=== PATIENT | female | born 1950 | race American Indian/Alaskan Native ===

== ENCOUNTER 2017-02-06 10:53 | Observation (INO) | payer MEDICARE ==
[2017-02-06 10:53] VITALS: BMI 28.8
--- NOTE | 2017-02-06 11:54 | C.PDOC ---
History Of Present Illness <Kathy Gonzales - Last Filed: 02/06/17 19:04> <InderSudhir - Last Filed: 02/06/17 21:11> 66 y/o female with Hx of Cancer is brought to ED by EMS with complaints of leg cramping right worse than left since this morning and persistent left axilla pain and side of left upper chest wall for "awhile". Patient also complaints of occasional cramping on right thigh and calf worse with movement. Patient was diagnosed with DVT in 2014 and has been on Coumadin since then, dose was increased 1 month ago. Patient denies cp, sob, chronic pain medicine use or any other complaints at this time. (Kathy Gonzales) History Per: Patient History/Exam Limitations: no limitations Onset/Duration Of Symptoms: Hrs Current Symptoms Are (Timing): Still Present <Kathy Gonzales - Last Filed: 02/06/17 19:04> <RandellalkaSudhir - Last Filed: 02/06/17 21:11> Time Seen by Provider: 02/06/17 11:28 Chief Complaint (Nursing): Lower Extremity Problem/Injury Past Medical History Reviewed: Historical Data, Nursing Documentation, Vital Signs - Medical History PMH: Anemia, Diabetes (Type 1), Malignancy (Colon, Breast) Family History: States: Unknown Family Hx - Social History Hx Tobacco Use: No Hx Alcohol Use: No Hx Substance Use: No - Immunization History Hx Tetanus Toxoid Vaccination: No Hx Influenza Vaccination: Yes Hx Pneumococcal Vaccination: No <Kathy Gonzales - Last Filed: 02/06/17 19:04> Review Of Systems Except As Marked, All Systems Reviewed And Found Negative. Constitutional: Negative for: Fever, Chills Cardiovascular: Negative for: Chest Pain Respiratory: Negative for: Shortness of Breath Gastrointestinal: Negative for: Nausea, Vomiting, Diarrhea Musculoskeletal: Positive for: Other (Axilla Pain) Neurological: Negative for: Weakness, Headache <Kathy Gonzales - Last Filed: 02/06/17 19:04> Physical Exam - Physical Exam Appears: Non-toxic, No Acute Distress Skin: Normal Color, Warm Head: Atraumatic, Normacephalic Oral Mucosa: Moist Neck: Normal ROM Chest: Symmetrical Cardiovascular: Rhythm Regular Respiratory: No Rales, No Rhonchi, No Wheezing Gastrointestinal/Abdominal: Soft, No Tenderness, No Guarding, No Rebound Extremity: Normal ROM (Upper Extremities), Pedal Edema, No Swelling, Other ( Patient has active muscle fasciculation on right thigh and calf, active pain noted) Extremity: Bilateral: Atraumatic, No Pedal Edema Neurological/Psych: Oriented x3, Normal Speech <Kathy Gonzales - Last Filed: 02/06/17 19:04> ED Course And Treatment - Laboratory Results Result Diagrams: 02/06/17 13:32 02/06/17 13:32 O2 Sat by Pulse Oximetry: 100 (RA) Pulse Ox Interpretation: Normal <Kathy Gonzales - Last Filed: 02/06/17 19:04> - Laboratory Results Result Diagrams: 02/06/17 13:32 02/06/17 20:42 Pulse Ox Interpretation: Normal Reevaluation Time: 21:10 Reassessment Condition: Improved <Sudhir Schulte - Last Filed: 02/06/17 21:11> Progress - Data Reviewed Data Reviewed: Lab, Diagnostic imaging, Old records <ChristianKathy - Last Filed: 02/06/17 19:04> Medical Decision Making <ChristianKathy - Last Filed: 02/06/17 19:04> <Sudhir Schulte - Last Filed: 02/06/17 21:11> Medical Decision Making: Plan: Meds, fluids and labs (Kathy Gonzales) ED OBSERVATION Date of observation admission: 02/06/17 Time of observation admission: 11:30 <Kathy Gonzales - Last Filed: 02/06/17 19:04> Discharge: Yes <RandellalkaNancyafua - Last Filed: 02/06/17 21:11> - Observation admission statement Patient is being placed in observation because:: MYALGIA, LEG PAIN (Kathy Gonzales) - Goals of Observation Goals of observation are:: RO DVT, ELECTROLYTE ABN, SX IMPROVE (Kathy Gonzales) - Progress Note Progress Note: 02/06/17 15:05 DOPPLER NO ACUTE FINDINGS. FEELS BETTER. MILD DEHYDRATION ON LABS, CREAT UNCH FROM PRIOR. WILL CONT IVF, REPEAT BMP 02/06/17 16:14 CO RECUR R LEG CRAMPING. WILL CONT MEDS, IVF IN PROGRESS 02/06/17 19:[address] SCHULTE (Kathy Gonzales) Disposition <Kathy Gonzales - Last Filed: 02/06/17 19:04> Counseled Patient/Family Regarding: Studies Performed, Diagnosis, Need For Followup - Disposition Disposition Time: 19:00 <Sudhir Schulte - Last Filed: 02/06/17 21:11> - Disposition Disposition: HOME/ ROUTINE Condition: FAIR - Clinical Impression Clinical Impression: Hyperkalemia, Muscle spasm of both lower legs - PA / [employer] / Resident Statement MD/DO has reviewed & agrees with the documentation as recorded. MD/DO has examined the patient and agrees with the treatment plan. - Scribe Statement The provider has reviewed the documentation as recorded by the Scribe <Kathy Gonzales - Last Filed: 02/06/17 19:04> <Sudhir Schulte - Last Filed: 02/06/17 21:11> - Scribe Statement Fabio Wyatt All medical record entries made by the Scribe were at my direction and personally dictated by me. I have reviewed the chart and agree that the record accurately reflects my personal performance of the history, physical exam, medical decision making, and the department course for this patient. I have also personally directed, reviewed, and agree with the discharge instructions and disposition. (Kathy Gonzales) Physician Patient Turnover Patient Signed Over To: Sudhir Schulte Handoff Comments: FU REPEAT BMP, DISPO <Kathy Gonzales - Last Filed: 02/06/17 19:04>
[2017-02-06 13:43] LABS: BASO % 0.4 % (0.0-2.0); EOS # 0.1 K/uL (0.0-0.7); EOS % 0.9 % (0.0-4.0); HEMATOCRIT 33.4 % (34.0-47.0); LYMPH # 0.9 K/uL (1.0-4.3); LYMPH % 14.5 % (20.0-40.0); MEAN CELL VOLUME 90.3 fL (81.0-99.0); MEAN CORPUSCULAR HEMOGLOBIN 29.8 pg (27.0-31.0); MEAN PLATELET VOLUME 8.3 fL (7.2-11.7); MONO # 0.9 K/uL (0.0-0.8); MONO % 14.7 % (0.0-10.0); RED CELL DISTRIBUTION WIDTH 13.1 % (11.5-14.5); WHITE BLOOD COUNT 5.9 K/uL (4.8-10.8)
[2017-02-06 13:51] LABS: INR 2.8
[2017-02-06 13:58] LABS: CALCIUM 9.1 mg/dl (8.6-10.4)
[2017-02-06 14:13] LABS: POTASSIUM 5.9 mmol/L (3.6-5.2)
[2017-02-06] MEDS ORDERED: (Novolin R) Insulin Human Regular 100 units/ml vial IV STA (15:15)
[2017-02-06] MEDS ORDERED: Dextrose 50% SYRINGE Inj (50 ml) IVP STA (15:15)
[2017-02-06] MEDS ORDERED: Sodium Chloride 0.9% 1,000 ML IV ONE ×2 (15:15→16:29)
--- NOTE | 2017-02-06 15:22 | VASCLAB ---
PROCEDURE: Lower Extremity Venous Duplex Exam. HISTORY: PAIN HO CANCER RO DVT PRIORS: None. TECHNIQUE: Bilateral common femoral, femoral, popliteal and posterior tibial, peroneal and great saphenous veins were evaluated. Flow was assessed with color Doppler, compressibility, assessment of phasic flow and augmentation response. Report prepared by Sudheer Perez, SHELIA, RVT FINDINGS: RIGHT: 1. Common Femoral Vein: 1.1. Compressibility - Fully compressible: Thrombus - None : Flow - Phasic: Augmentation -Normal: Reflux - None. 2. Femoral Vein: 2.1. Compressibility - Fully compressible: Thrombus - None : Flow - Phasic: Augmentation -Normal: Reflux - None. 3. Popliteal Vein: 3.1. Compressibility - Fully compressible: Thrombus - None : Flow - Phasic: Augmentation -Normal: Reflux - None. 4. Posterior Tibial Vein: 4.1. Compressibility - Fully compressible: Thrombus - None: Flow - Phasic: Augmentation -Normal: Reflux - None. 5. Peroneal Vein: 5.1. Compressibility - Fully compressible: Thrombus - None: Flow - Phasic: Augmentation -Normal: Reflux - None. 6. Great Saphenous Vein: 6.1. Compressibility - Fully compressible: Thrombus - None: Flow - Phasic: Augmentation - Normal: Reflux - None. LEFT: 1. Common Femoral Vein: 1.1. Compressibility - Fully compressible: Thrombus - None: Flow - Phasic: Augmentation -Normal: Reflux - None. 2. Femoral Vein: 2.1. Compressibility - Fully compressible: Thrombus - None: Flow - Phasic: Augmentation -Normal: Reflux - None. 3. Popliteal Vein: 3.1. Compressibility - Fully compressible: Thrombus - None : Flow - Phasic: Augmentation -Normal: Reflux - None. 4. Posterior Tibial Vein: 4.1. Compressibility - Fully compressible: Thrombus - None: Flow - Phasic: Augmentation -Normal: Reflux - None. 5. Peroneal Vein: 5.1. Compressibility - Fully compressible: Thrombus - None: Flow - Phasic: Augmentation -Normal: Reflux - None. 6. Great Saphenous Vein: 6.1. Compressibility - Fully compressible: Thrombus - None: Flow - Phasic: Augmentation - Normal: Reflux - None. OTHER FINDINGS: Right: None significant. Left: None significant. IMPRESSION: Right: No evidence of deep or superficial vein thrombosis of the right lower extremity. Normal valve function noted of the right side. Left: No evidence of deep or superficial vein thrombosis of the left lower extremity. Normal valve function noted of the left side.
--- NOTE | 2017-02-06 15:22 | VASCLAB ---
PROCEDURE: Left Upper Extremity Venous Duplex Exam HISTORY: PAIN HO CANCER RO DVT PRIORS: None. TECHNIQUE: Left upper extremity, internal jugular, subclavian, axillary, brachial, ulnar, radial, basilic and upper cephalic veins were evaluated. Flow was assessed with color Doppler, compressibility, assessment of phasic flow and augmentation response. Report prepared by Sudheer Perez, SHELIA, RVT FINDINGS: LEFT: 1. Internal Jugular: 1.1. Compressibility - Fully compressible: Thrombus - None : Flow - Phasic: Augmentation -Normal: Reflux - None. 2. Subclavian: 2.1. Compressibility - Incompressible: Thrombus - Chronic : Flow - Absent : Augmentation -None: Reflux - None. 3. Axillary: 3.1. Compressibility - Fully compressible: Thrombus - None : Flow - Phasic: Augmentation -Normal: Reflux - None. 4. Brachial: 4.1. Compressibility - Fully compressible: Thrombus - None: Flow - Phasic: Augmentation -Normal: Reflux - None. 5. Ulnar: 5.1. Compressibility - Fully compressible: Thrombus - None: Flow - Phasic: Augmentation -Normal: Reflux - None. 6. Radial: 6.1. Compressibility - Fully compressible: Thrombus - None: Flow - Phasic: Augmentation - Normal: Reflux - None. 7. Cephalic: 7.1. Compressibility - Fully compressible: Thrombus - None: Flow - Phasic: Augmentation -Normal: Reflux - None. 8. Basilic: 8.1. Compressibility - Fully compressible: Thrombus - None: Flow - Phasic: Augmentation -Normal: Reflux - None. OTHER FINDINGS: Dr. Gonzales notified about the findings. 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 Normal venous flow noted in the right internal jugular and right subclavian veins.
[2017-02-06] MEDS ORDERED: (Novolin R) Insulin Human Regular 100 units/ml vial ONE (15:25)
[2017-02-06] MEDS ORDERED: Dextrose 50% SYRINGE Inj (50 ml) ONE (15:26)
[2017-02-06] MEDS ORDERED: Sodium Chloride 0.9% 1,000 ML ONE ×2 (15:26→17:30)
[2017-02-06] MEDS ORDERED: Oxycodone/Acetaminophen 5/325 mg Tab PO STA (16:14)
[2017-02-06] MEDS ORDERED: Oxycodone/Acetaminophen 5/325 mg Tab ONE (16:24)
[2017-02-06 16:25] VITALS: TEMP 98.7
[2017-02-06 20:39] VITALS: BP 112/52; PULSE 82; RESP 20; O2SAT 99
[2017-02-06 20:58] LABS: POTASSIUM 5.4 mmol/L (3.6-5.2)
[2017-02-06 21:02] LABS: CALCIUM 8.2 mg/dl (8.6-10.4)
[2017-02-06] MEDS ORDERED: Sod Polystyrene Sulf 15 gm/60 ml Oral Susp PO ONE (21:13)
[2017-02-06] MEDS ORDERED: Sod Polystyrene Sulf 15 gm/60 ml Oral Susp ONE (21:26)
== END 2017-02-06 21:11 | disposition home or self-care (01) ==
LOC: C.ER 10:53 → C.9OBSV 11:30
PROVIDERS: ADMIT Emergency Medicine; ATTEND Emergency Medicine
DX: R25.2 Cramp and spasm (principal); M62.831 Muscle spasm of calf; E87.5 Hyperkalemia; M79.1 Myalgia
CPT/HCPCS: 36415; 80048; 85025; 85610; 85730; 93970; 93971; 96360; 96374; G0378; J1885; J2270; J7040

== ENCOUNTER 2017-05-19 07:04 | Day surgery (SDC) | payer MEDICARE ==
[2017-05-14 12:57] VITALS: BMI 27.1
[2017-05-19] MEDS: ceFAZolin IV 1 gm in Dextrose 1 GM/50 ML BAG IVPB ONE ×2 (09:14→10:10)
[2017-05-19] MEDS ORDERED: Lactated Ringer's 1,000 ML IV ONE ×3 (09:14)
[2017-05-19] MEDS: Lidocaine 2% w Epi 1:100,000 Inj IJ ONE ×2 (09:15→10:14)
[2017-05-19] MEDS ORDERED: Bupivacaine 0.5% Inj(30mL) ONE (09:33)
[2017-05-19] MEDS ORDERED: Midazolam 2 MG/2 ML VIAL ONE (10:01)
[2017-05-19] MEDS ORDERED: Propofol 10 mg/ml Inj (20 ML) ONE ×2 (10:01→10:04)
[2017-05-19] MEDS ORDERED: Rocuronium 10 mg/ml (5 ml) ONE (10:04)
--- NOTE | 2017-05-19 10:58 | PCM.SURG1 ---
Surgeon's Initial Post Op Note - Surgeon's Notes Surgeon: Dr. Zuluaga Credit Control Administrator: Rico [id number] III Type of Anesthesia: IV Sedation Pre-Operative Diagnosis: Firm clavicular Lymph node Operative Findings: see operative report Post-Operative Diagnosis: same Operation Performed: Excisional biopsy of clavicular Lymph node Specimen/Specimens Removed: clavicular Lymph node Estimated Blood Loss: EBL {In ML}: 5 Blood Products Given: N/A Drains Used: No Drains Post-Op Condition: Good Date of Surgery/Procedure: 05/19/17 Time of Surgery/Procedure: 10:58
[2017-05-19 11:29] VITALS: O2SAT 100
[2017-05-19 11:54] VITALS: BP 123/61; PULSE 100; RESP 18; TEMP 97
--- NOTE | 2017-05-19 19:07 | OP ---
PROCEDURE DATE: 05/19/2017 PREOPERATIVE DIAGNOSIS: Abnormal left supraclavicular subcutaneous nodule. PROCEDURE CARRIED OUT: Excision of 3 cm lesion, left supraclavicular region. SURGEON: Prince Zuluaga Jr., MD STEWARD/STEWARDESS NIGHT: . TYPE OF ANESTHESIA: General anesthesia, local. ANESTHESIA ADMINISTERED BY: Ms. Marshall. OPERATIVE FINDINGS: One lesion was completely removed until it is hard to say, whether this is a cyst or represented a malignant lesion. INDICATIONS: The patient is a middle-aged female with history of colorectal cancer and breast cancer, status post radiation therapy to left side of the neck presents with a large lesion in this area. She also has a multiple pulmonary nodules. DESCRIPTION OF PROCEDURE: Lesion was excised. The wound was then approximated in a layered closure. The flaps were raised, which was necessary because of the irradiated tissue, but after this has been done it approximated nicely. Blood loss for the procedure is minimal. Operation carried out is excision of left supraclavicular nodule of 3 cm in size. Prince Zuluaga Jr., MD
== END 2017-05-19 12:32 | disposition home or self-care (01) ==
LOC: C.SDS 07:04
PROVIDERS: ATTEND Surgery Vascular Surgery
DX: C79.2 Secondary malignant neoplasm of skin (principal); Z85.3 Personal history of malignant neoplasm of breast; Z92.3 Personal history of irradiation; Z85.038 Personal history of other malignant neoplasm of large intestine
CPT/HCPCS: 38520; 82948; 84233; 88305; 88342; J0690; J2001; J2250; J2704; J3010; J7120

== ENCOUNTER 2017-06-17 05:44 | Emergency (ER) | payer MEDICARE ==
[2017-06-17 05:46] VITALS: BMI 27.1
--- NOTE | 2017-06-17 06:10 | C.PDOC ---
History Of Present Illness Patient presents to the ER with a complaint of left arm pain and left leg cramps radiating to the right arm. Patient was recently diagnosed with metastatic breast CA. Denies fever, chills, nausea, vomiting, or recent trauma. Time Seen by Provider: 06/17/17 06:10 Chief Complaint (Nursing): Upper Extremity Problem/Injury History Per: Patient History/Exam Limitations: no limitations Onset/Duration Of Symptoms: Hrs Current Symptoms Are (Timing): Still Present Quality: "Pain" Severity: Moderate Pain Scale Rating Of: 5 Exacerbating Factor(s): Movement Recent travel outside of the [place]: No Additional History Per: Patient Past Medical History Reviewed: Historical Data, Nursing Documentation, Vital Signs Vital Signs: Last Vital Signs Temp 97.5 F L 06/17/17 05:56 Pulse 72 06/17/17 05:56 Resp 20 06/17/17 05:56 BP 162/91 H 06/17/17 05:56 Pulse Ox 100 06/17/17 06:39 - Medical History PMH: Anemia, Diabetes (Type 1), Malignancy (Colon, Breast) - [facility] Procedures ENDO RECTUM POLYPECTOMY (05/24/02) ENDOSC POLYPECTOMY OF LG INTEST (06/15/04) ESOPHAGOGASTRODUODENOSCOPY [EGD] W/CLOSED BIOPSY (07/17/04) Family History: States: No Known Family Hx - Social History Hx Tobacco Use: No Hx Alcohol Use: No Hx Substance Use: No - Immunization History Hx Tetanus Toxoid Vaccination: No Hx Influenza Vaccination: Yes Hx Pneumococcal Vaccination: No Review Of Systems Constitutional: Negative for: Fever, Chills Eyes: Negative for: Vision Change ENT: Negative for: Throat Pain Cardiovascular: Negative for: Chest Pain Respiratory: Negative for: Shortness of Breath Gastrointestinal: Negative for: Nausea, Vomiting Musculoskeletal: Positive for: Shoulder Pain, Arm Pain, Leg Pain Skin: Negative for: Rash Neurological: Negative for: Weakness Psych: Negative for: Anxiety Physical Exam - Physical Exam Appears: Non-toxic Skin: Warm, Dry Head: Normacephalic Eye(s): bilateral: Normal Inspection, PERRL, EOMI Oral Mucosa: Moist Neck: Trachea Midline, Supple Chest: Symmetrical, Tenderness (left chest wall, reproducible) Cardiovascular: Rhythm Regular Respiratory: No Rales, No Rhonchi, No Wheezing Gastrointestinal/Abdominal: Soft, No Tenderness Back: Normal Inspection Extremity: Tenderness (Reproducible left shoulder and left arm), Swelling (Left arm edema, left arm bigger than right arm), Other (Limited ROM of left arm due to pain) Extremity: Bilateral: Atraumatic, Normal Color And Temperature, Normal ROM Pulses: Left Radial: Normal, Right Radial: Normal, Left Femoral: Normal, Right Femoral: Normal, Left Dorsalis Pedis: Normal, Right Dorsalis Pedis: Normal Neurological/Psych: Oriented x3, Normal Speech, Normal Cognition Gait: Steady ED Course And Treatment - Laboratory Results Result Diagrams: 06/17/17 06:28 O2 Sat by Pulse Oximetry: 100 (Room air) Pulse Ox Interpretation: Normal Progress Note: EKG, blood work, CXR, and urinalysis ordered. Toradol and IV fluids administered. Disposition Counseled Patient/Family Regarding: Studies Performed, Diagnosis - Disposition Disposition Time: 06:10 Condition: UNKNOWN Forms: [facility] (Polish) - Clinical Impression Clinical Impression: Chest pain, Arm swelling, History of colon cancer, History of breast cancer - Scribe Statement The provider has reviewed the documentation as recorded by the Scribcinthya Barbosa All medical record entries made by the Scribe were at my direction and personally dictated by me. I have reviewed the chart and agree that the record accurately reflects my personal performance of the history, physical exam, medical decision making, and the department course for this patient. I have also personally directed, reviewed, and agree with the discharge instructions and disposition. Physician Patient Turnover Patient Signed Over To: Kathy Gonzales Handoff Comments: pending labs and dispostion
[2017-06-17] MEDS ORDERED: Sodium Chloride 0.9% 1,000 ML IV SCH (06:15)
[2017-06-17 06:32] LABS: BASO % 0.3 % (0.0-2.0); EOS # 0.1 K/uL (0.0-0.7); EOS % 1.2 % (0.0-4.0); HEMATOCRIT 34.4 % (34.0-47.0); LYMPH # 1.5 K/uL (1.0-4.3); LYMPH % 22.4 % (20.0-40.0); MEAN CELL VOLUME 93.1 fL (81.0-99.0); MEAN CORPUSCULAR HEMOGLOBIN 30.7 pg (27.0-31.0); MEAN PLATELET VOLUME 8.8 fL (7.2-11.7); MONO # 0.7 K/uL (0.0-0.8); MONO % 9.9 % (0.0-10.0); NRBC % 0.1 % (0.0-2.0); WHITE BLOOD COUNT 6.9 K/uL (4.8-10.8)
[2017-06-17 06:43] LABS: CHLORIDE 104 mmol/L (98-107); POTASSIUM 4.8 mmol/L (3.6-5.2); SODIUM 133 mmol/L (132-148)
[2017-06-17 06:45] LABS: AST/SGOT 35 U/L (14-36); BILIRUBIN,TOTAL 0.5 mg/dL (0.2-1.3); BLOOD UREA NITROGEN 37 mg/dL (7-17); CARBON DIOXIDE 17 mmol/L (22-30); GFR AFRICAN-AMERICAN 39; TOTAL PROTEIN 9.1 g/dL (6.3-8.3)
[2017-06-17 06:46] LABS: ALKALINE PHOSPHATASE 79 U/L (38-126); ALT/SGPT 32 U/L (9-52); CALCIUM 10.2 mg/dl (8.6-10.4); GLUCOSE,RANDOM 117 mg/dL (65-105)
[2017-06-17 07:05] LABS: INR 2.8; PARTIAL THROMBOPLASTIN TIME 41 SECONDS (21-34)
--- NOTE | 2017-06-17 08:07 | RAD ---
PROCEDURE: CHEST RADIOGRAPH, 1 VIEW HISTORY: SOB COMPARISON: 12/07/2014 chest x-ray. CT chest abdomen and pelvis 05/01/2017 FINDINGS: LUNGS: No significant appearing consolidation. Vague opacity at the left hemidiaphragm probably relates to CT referenced spiculated nodule at the left lung base PLEURA: No pneumothorax or pleural fluid seen. CARDIOVASCULAR: Normal heart size. Pulmonary vasculature -top-normal OSSEOUS STRUCTURES: No significant abnormalities. VISUALIZED UPPER ABDOMEN: Normal. OTHER FINDINGS: None. IMPRESSION: No acute cardiopulmonary pathology appreciated. Please note the previously reported CT pulmonary nodules - -for which this chest x-ray is fairly unrevealing of.
[2017-06-17 09:30] LABS: RBC URINE 1 /hpf (0-3); URINE BACTERIA RARE (<OCC); URINE BILIRUBIN NEGATIVE (NEGATIVE); URINE BLOOD NEGATIVE (NEGATIVE); URINE COLOR Yellow (YELLOW); URINE GLUCOSE (UA) NORMAL (Normal); URINE KETONE NEGATIVE (NEGATIVE); URINE LEUKOCYTE ESTERASE 3+ Leu/uL (Negative); URINE PROTEIN NEGATIVE (NEGATIVE); URINE UROBILINOGEN NORMAL mg/dL (0.2-1.0); WBC URINE 44 /hpf (0-5)
[2017-06-17 11:21] VITALS: BP 137/68; PULSE 87; RESP 17; TEMP 97.9; O2SAT 100
== END 2017-06-17 13:07 | disposition home or self-care (01) ==
LOC: C.ER 05:44
DX: R07.9 Chest pain, unspecified (principal); M79.89 Other specified soft tissue disorders; Z85.038 Personal history of other malignant neoplasm of large intestine; Z85.3 Personal history of malignant neoplasm of breast; D64.9 Anemia, unspecified; E11.9 Type 2 diabetes mellitus without complications
CPT/HCPCS: 71010; 80053; 81001; 82948; 84484; 85025; 85378; 85610; 85730; 94770; 96374; 99285; J1885; J7040

== ENCOUNTER 2017-11-01 11:35 | Inpatient (IN) | payer MEDICARE ==
[2017-11-01 11:42] VITALS: BMI 25.8
[2017-11-01 12:09] LABS: BASO % 0.5 % (0.0-2.0); EOS # 0.1 K/uL (0.0-0.7); HEMOGLOBIN 10.8 g/dL (11.0-16.0); LYMPH # 1.2 K/uL (1.0-4.3); LYMPH % 21.2 % (20.0-40.0); MEAN CELL VOLUME 93.1 fL (81.0-99.0); MEAN CORPUSCULAR HEMOGLOBIN 30.9 pg (27.0-31.0); MEAN CORPUSCULAR HGB CONC 33.2 g/dL (33.0-37.0); MEAN PLATELET VOLUME 8.9 fL (7.2-11.7); MONO # 0.5 K/uL (0.0-0.8); MONO % 9.3 % (0.0-10.0); NEUT # 3.8 K/uL (1.8-7.0); RBC 3.49 Mil/uL (3.80-5.20); RED CELL DISTRIBUTION WIDTH 12.5 % (11.5-14.5); WHITE BLOOD COUNT 5.6 K/uL (4.8-10.8)
--- NOTE | 2017-11-01 12:10 | C.PDOC ---
History Of Present Illness 67 year old female presents to the emergency department with a complaint of a chest pain and shortness of breath x2 days. Reports pain is located to the left sided and radiates to the back. States she had pain yesterday but persisted today which is why she decided to come to the ER. Denies use of medications for the relief of pain or any further medical complaints. Patient has a history of deep vein thrombosis (DVT), colostomy, and diabetes. Time Seen by Provider: 11/01/17 11:49 Chief Complaint (Nursing): Chest Pain History Per: Patient History/Exam Limitations: no limitations Onset/Duration Of Symptoms: Days Past Medical History Reviewed: Historical Data, Nursing Documentation, Vital Signs Vital Signs: Last Vital Signs Temp 98.2 F 11/01/17 18:00 Pulse 84 11/01/17 18:00 Resp 14 11/01/17 18:00 BP 132/70 11/01/17 18:00 Pulse Ox 100 11/01/17 18:29 - Medical History PMH: Anemia, Diabetes (Type 1), Malignancy (Colon, Breast) Denies: Chronic Kidney Disease - [facility] Procedures ENDO RECTUM POLYPECTOMY (05/24/02) ENDOSC POLYPECTOMY OF LG INTEST (06/15/04) ESOPHAGOGASTRODUODENOSCOPY [EGD] W/CLOSED BIOPSY (07/17/04) Family History: States: Unknown Family Hx - Social History Hx Tobacco Use: No Hx Alcohol Use: No Hx Substance Use: No - Immunization History Hx Tetanus Toxoid Vaccination: No Hx Influenza Vaccination: Yes Hx Pneumococcal Vaccination: No Review Of Systems Except As Marked, All Systems Reviewed And Found Negative. (As per HPI, otherwise negative) Cardiovascular: Positive for: Chest Pain (Left-sided) Respiratory: Positive for: Shortness of Breath Musculoskeletal: Positive for: Back Pain Physical Exam - Physical Exam Appears: Well, Non-toxic, Toxic Skin: Normal Color, Warm, Dry Head: Atraumatic, Normacephalic Eye(s): bilateral: Normal Inspection Neck: Normal Chest: Symmetrical Cardiovascular: Rhythm Regular Respiratory: Normal Breath Sounds, No Decreased Breath Sounds, No Accessory Muscle Use Gastrointestinal/Abdominal: Normal Exam, Soft, No Tenderness, Other (positive colostomy bag) Back: Normal Inspection Extremity: Normal ROM, No Pedal Edema Extremity: Bilateral: Atraumatic Neurological/Psych: Oriented x3 Gait: Steady ED Course And Treatment - Laboratory Results Result Diagrams: 11/01/17 12:03 11/01/17 12:03 ECG Rhythm: Sinus Rhythm (Normal sinus at 89 bpm. Normal intervals. Normal axis. Poor R wave progression and T wave inversion at lead 3. ) O2 Sat by Pulse Oximetry: 100 (RA) Pulse Ox Interpretation: Normal Medical Decision Making Medical Decision Making: Time:1200 --EKG --BNP --CMP --Troponin I --CBC w/ diff --Chest x-ray --Reevaluation Time: 1231 --Chest x-ray FINDINGS: LUNGS: 5 mm right apical lung nodule. Clear. PLEURA: No pneumothorax or pleural fluid seen. CARDIOVASCULAR: Atherosclerotic aortic calcifications. Cardiomediastinal silhouette within normal limits. OSSEOUS STRUCTURES: Unchanged. VISUALIZED UPPER ABDOMEN: Normal. OTHER FINDINGS: None. IMPRESSION: No active disease. Right apical 5 mm pulmonary nodule. Multiple additional pulmonary nodules demonstrated on CT scan of the chest, abdomen pelvis from April 2017. case discussed with admitting team and will admit patient to hospital Disposition Counseled Patient/Family Regarding: Studies Performed, Diagnosis, Need For Followup - Disposition Disposition: HOSPITALIZED Disposition Time: 13:58 Condition: FAIR - Clinical Impression Clinical Impression: Chest pain, Pancreatitis
--- NOTE | 2017-11-01 12:32 | RAD ---
PROCEDURE: CHEST RADIOGRAPH, 1 VIEW HISTORY: chest pain COMPARISON: Chest radiograph dated 06/17/2017. FINDINGS: LUNGS: 5 mm right apical lung nodule. Clear. PLEURA: No pneumothorax or pleural fluid seen. CARDIOVASCULAR: Atherosclerotic aortic calcifications. Cardiomediastinal silhouette within normal limits. OSSEOUS STRUCTURES: Unchanged. VISUALIZED UPPER ABDOMEN: Normal. OTHER FINDINGS: None. IMPRESSION: No active disease. Right apical 5 mm pulmonary nodule. Multiple additional pulmonary nodules demonstrated on CT scan of the chest, abdomen pelvis from April 2017.
[2017-11-01 12:33] LABS: ALB/GLOB RATIO 1.1 (1.0-2.1); ALBUMIN 4.3 g/dL (3.5-5.0); ALT/SGPT 13 U/L (9-52); AST/SGOT 32 U/L (14-36); BLOOD UREA NITROGEN 31 mg/dL (7-17); GFR AFRICAN-AMERICAN 45; GFR NON-AFRICAN AMERICAN 37
[2017-11-01 12:34] LABS: B-TYPE NATRIURETIC PEPTIDE 44.8 pg/mL (0-900)
[2017-11-01 12:55] LABS: INR 2.2; PROTHROMBIN TIME 25.4 SECONDS (9.7-12.2)
--- NOTE | 2017-11-01 17:13 | CP.PCM.HP ---
<Natanael Kendall - Last Filed: 11/01/17 17:07> History of Present Illness - History of Present Illness History of Present Illness: This is a 67 yo female with past medical hx of colon cancer, breast cancer, sciatica, clot in subclavian, ckd, presenting with chief complaint of chest pain. pt has been having chest pain for 1-2 days. she reports this has never happened before. she says she saw a manager banquet a long time ago but cannot recall why. she reports having a normal stress test. she says the pain is located over her sternum and radiates to her back. relaxing makes it better, bending over makes it worse. the pain itself has been getting worse, now 01/08. describes the sensation as "pressure." denies abdominal pain. on warfarin for subclavian dvt. PMH: subclavian dvt, ckd, sciatica, with lumbago, colon cancer, breast cancer, DM, fibroids PSH: hysterectomy, lumpectomy, colostomy Allergies: tylenol, oxycodone FH: PE , MA Home meds: glipizide, anastrozole, warfarin, shanti + d, biotin, sodium bicarb, atorvastatin Social hx: past smoker. does not drink or use drugs. Present on Admission - Present on Admission Any Indicators Present on Admission: Yes History of DVT/PE: Yes History of Uncontrolled Diabetes: No Urinary Catheter: No Decubitus Ulcer Present: No Review of Systems - Review of Systems All systems: reviewed and no additional remarkable complaints except Review of Systems: negative except as per HPI. Past Patient History - Infectious Disease Hx of Infectious Diseases: None - Tetanus Immunizations Tetanus Immunization: Unknown - Past Medical History & Family History Past Medical History?: Yes - Past Social History Smoking Status: Former Smoker Chewing Tobacco Use: No Cigar Use: No Alcohol: None Drugs: Denies Home Situation {Lives}: With Family Domestic Violence: Negative - CARDIAC Hx Cardiac Disorders: Yes Hx Circulatory Problems: Yes (blood clots) Other/Comment: CLOTS LEFT SUB CLAVIAN 2014 - HEENT Other/Comment: Near sighted - RENAL Hx Chronic Kidney Disease: No - ENDOCRINE/METABOLIC Hx Endocrine Disorders: Yes Hx Diabetes Mellitus Type 1: Yes - HEMATOLOGICAL/ONCOLOGICAL Hx Anemia: Yes - INTEGUMENTARY Hx Dermatological Problems: No - MUSCULOSKELETAL/RHEUMATOLOGICAL Hx Musculoskeletal Disorders: Yes Hx Back Pain: Yes Hx Falls: Yes Other/Comment: Left arm weakness, right foot weakness - GASTROINTESTINAL Hx Gastrointestinal Disorders: Yes Hx Bowel Surgery: Yes Hx Colostomy: Yes (2012) Other/Comment: COLON CANCER - GENITOURINARY/GYNECOLOGICAL Hx Genitourinary Disorders: No Hx Urinary Tract Infection: Yes Other/Comment: COLON CANCER - PSYCHIATRIC Hx Substance Use: No - SURGICAL HISTORY Hx Surgeries: Yes Hx Breast Biopsy: Yes (LEFT BREAST LUMPECTOMY) Hx Hysterectomy: Yes (1988) Other/Comment: TOTAL COLECTOMY 1984 - ANESTHESIA Hx Anesthesia: Yes Hx Anesthesia Reactions: Yes (1984, patient does not remember the medication) Hx Malignant Hyperthermia: No Meds Allergies/Adverse Reactions: Allergies Allergy/AdvReac Type Severity Reaction Status Date / Time acetaminophen [From Percocet] Allergy VOMITING Verified 11/01/17 11:39 oxycodone [From Percocet] Allergy VOMITING Verified 11/01/17 11:39 Physical Exam - Constitutional Appears: Non-toxic, No Acute Distress, Chronically Ill - Head Exam Head Exam: ATRAUMATIC, NORMAL INSPECTION, NORMOCEPHALIC - Eye Exam Eye Exam: EOMI - ENT Exam ENT Exam: Mucous Membranes Moist - Neck Exam Neck exam: Positive for: Full Rom, Normal Inspection - Respiratory Exam Respiratory Exam: Chest Wall Tenderness, NORMAL BREATHING PATTERN. absent: Respiratory Distress - Cardiovascular Exam Cardiovascular Exam: +S1, +S2 - GI/Abdominal Exam GI & Abdominal Exam: Normal Bowel Sounds, Soft. absent: Tenderness - Extremities Exam Extremities exam: Positive for: full ROM, normal inspection - Back Exam Back exam: NORMAL INSPECTION - Psychiatric Exam Psychiatric exam: Normal Affect, Normal Mood - Skin Skin Exam: Dry, Intact, Normal Color, Warm Results - Vital Signs Recent Vital Signs: Last Vital Signs Temp 97.9 F 11/01/17 11:42 Pulse 96 H 11/01/17 16:44 Resp 13 11/01/17 16:44 BP 138/76 11/01/17 16:44 Pulse Ox 100 11/01/17 16:44 - Labs Result Diagrams: 11/01/17 12:03 11/01/17 12:03 Labs: Laboratory Results - last 24 hr 11/01/17 11/01/17 11/01/17 12:03 12:03 12:40 WBC 5.6 RBC 3.49 L Hgb 10.8 L Hct 32.5 L MCV 93.1 MCH 30.9 MCHC 33.2 RDW 12.5 Plt Count 252 MPV 8.9 Neut % (Auto) 68.0 Lymph % (Auto) 21.2 [place] % (Auto) 9.3 Eos % (Auto) 1.0 Baso % (Auto) 0.5 Neut # (Auto) 3.8 Lymph # (Auto) 1.2 [place] # (Auto) 0.5 Eos # (Auto) 0.1 Baso # (Auto) 0.0 PT 25.4 H INR 2.2 APTT 42 H D-Dimer, Quantitative Sodium 139 Potassium 5.0 Chloride 103 Carbon Dioxide 24 Anion Gap 17 BUN 31 H Creatinine 1.4 H Est GFR ( Amer) 45 Est GFR (Non-Af Amer) 37 Random Glucose 196 H Calcium 10.0 Total Bilirubin 0.4 AST 32 ALT 13 Alkaline Phosphatase 83 Troponin I < 0.0120 NT-Pro-B Natriuret Pep 44.8 Total Protein 8.3 Albumin 4.3 Globulin 4.0 H Albumin/Globulin Ratio 1.1 Lipase 11/01/17 11/01/17 12:40 14:13 WBC RBC Hgb Hct MCV MCH MCHC RDW Plt Count MPV Neut % (Auto) Lymph % (Auto) [place] % (Auto) Eos % (Auto) Baso % (Auto) Neut # (Auto) Lymph # (Auto) [place] # (Auto) Eos # (Auto) Baso # (Auto) PT INR APTT D-Dimer, Quantitative < 200 Sodium Potassium Chloride Carbon Dioxide Anion Gap BUN Creatinine Est GFR ( Amer) Est GFR (Non-Af Amer) Random Glucose Calcium Total Bilirubin AST ALT Alkaline Phosphatase Troponin I NT-Pro-B Natriuret Pep Total Protein Albumin Globulin Albumin/Globulin Ratio Lipase 401 H Assessment & Plan - Assessment and Plan (Free Text) Assessment: This is a 67 yo female with 1. Chest pain -risk factors- DM, HTN, former smoker. -check trops and serial ekgs -d dimer neg -echo pending -cardiology. Dr. Cazares. recs appreciated. -EKG shows t wave inversion- will check for prior ekgs -will follow up report of prior stress test. -ASO -rapid flu -cxr -bnp pending -HGB A1C, TSH -ESR, CRP -will check manual blood pressure in each upper ext. 2. hx of subclavian dvt/hx of breast cancer/hx of colon cancer -s/p post total colectomy -d dimer negative -therapeutic on warfarin -continue warfarin -upper and lower extremity venous dopplers pending 3. elevated lipase -repeat lipase and amylase -lipid panel in am -can be due to ckd 4. urinary frequency -check ua -urine culture 5. CKD -nephrology consult. recs appreciated. Dr. Freeman. 6. lumbar pathology -previous mri will be reviewed 7. DM -continue home glipizide 8. GI/DVT ppx -continue warfarin -protonix daily dw Dr. Dasilva. <Uzma Dasilva V - Last Filed: 11/01/17 21:35> Results - Vital Signs Recent Vital Signs: Last Vital Signs Temp 97.9 F 11/01/17 20:28 Pulse 86 11/01/17 20:28 Resp 18 11/01/17 20:28 BP 134/76 11/01/17 20:28 Pulse Ox 100 11/01/17 20:28 - Labs Result Diagrams: 11/01/17 12:03 11/01/17 12:03 Labs: Laboratory Results - last 24 hr 11/01/17 11/01/17 11/01/17 12:03 12:03 12:40 WBC 5.6 RBC 3.49 L Hgb 10.8 L Hct 32.5 L MCV 93.1 MCH 30.9 MCHC 33.2 RDW 12.5 Plt Count 252 MPV 8.9 Neut % (Auto) 68.0 Lymph % (Auto) 21.2 [place] % (Auto) 9.3 Eos % (Auto) 1.0 Baso % (Auto) 0.5 Neut # (Auto) 3.8 Lymph # (Auto) 1.2 [place] # (Auto) 0.5 Eos # (Auto) 0.1 Baso # (Auto) 0.0 ESR PT 25.4 H INR 2.2 APTT 42 H D-Dimer, Quantitative Sodium 139 Potassium 5.0 Chloride 103 Carbon Dioxide 24 Anion Gap 17 BUN 31 H Creatinine 1.4 H Est GFR ( Amer) 45 Est GFR (Non-Af Amer) 37 Random Glucose 196 H Calcium 10.0 Total Bilirubin 0.4 AST 32 ALT 13 Alkaline Phosphatase 83 Total Creatine Kinase CK-MB (Mass) Troponin I < 0.0120 C-React Prot High Sens NT-Pro-B Natriuret Pep 44.8 Total Protein 8.3 Albumin 4.3 Globulin 4.0 H Albumin/Globulin Ratio 1.1 Amylase Lipase TSH 3rd Generation Urine Color Urine Clarity Urine pH Ur Specific [place] Urine Protein Urine Glucose (UA) Urine Ketones Urine Blood Urine Nitrate Urine Bilirubin Urine Urobilinogen Ur Leukocyte Esterase Urine WBC (Auto) Urine RBC (Auto) Ur Squamous Epith Cells Ur Transition Epith Cell Influenza Typ A,B (EIA) 11/01/17 11/01/17 11/01/17 12:40 14:13 16:16 WBC RBC Hgb Hct MCV MCH MCHC RDW Plt Count MPV Neut % (Auto) Lymph % (Auto) [place] % (Auto) Eos % (Auto) Baso % (Auto) Neut # (Auto) Lymph # (Auto) [place] # (Auto) Eos # (Auto) Baso # (Auto) ESR PT INR APTT D-Dimer, Quantitative < 200 Sodium Potassium Chloride Carbon Dioxide Anion Gap BUN Creatinine Est GFR ( Amer) Est GFR (Non-Af Amer) Random Glucose Calcium Total Bilirubin AST ALT Alkaline Phosphatase Total Creatine Kinase CK-MB (Mass) Troponin I C-React Prot High Sens NT-Pro-B Natriuret Pep Total Protein Albumin Globulin Albumin/Globulin Ratio Amylase Lipase 401 H TSH 3rd Generation Urine Color Urine Clarity Urine pH Ur Specific [place] Urine Protein Urine Glucose (UA) Urine Ketones Urine Blood Urine Nitrate Urine Bilirubin Urine Urobilinogen Ur Leukocyte Esterase Urine WBC (Auto) Urine RBC (Auto) Ur Squamous Epith Cells Ur Transition Epith Cell Influenza Typ A,B (EIA) Negative for flu a/b 11/01/17 11/01/17 11/01/17 18:23 18:23 18:23 WBC RBC Hgb Hct MCV MCH MCHC RDW Plt Count MPV Neut % (Auto) Lymph % (Auto) [place] % (Auto) Eos % (Auto) Baso % (Auto) Neut # (Auto) Lymph # (Auto) [place] # (Auto) Eos # (Auto) Baso # (Auto) ESR 25 H PT INR APTT D-Dimer, Quantitative Sodium Potassium Chloride Carbon Dioxide Anion Gap BUN Creatinine Est GFR ( Amer) Est GFR (Non-Af Amer) Random Glucose Calcium Total Bilirubin AST ALT Alkaline Phosphatase Total Creatine Kinase 93 CK-MB (Mass) 1.09 Troponin I < 0.0120 C-React Prot High Sens 0.40 L NT-Pro-B Natriuret Pep 49.9 Total Protein Albumin Globulin Albumin/Globulin Ratio Amylase 223 H Lipase TSH 3rd Generation 0.55 Urine Color Urine Clarity Urine pH Ur Specific [place] Urine Protein Urine Glucose (UA) Urine Ketones Urine Blood Urine Nitrate Urine Bilirubin Urine Urobilinogen Ur Leukocyte Esterase Urine WBC (Auto) Urine RBC (Auto) Ur Squamous Epith Cells Ur Transition Epith Cell Influenza Typ A,B (EIA) 11/01/17 18:23 WBC RBC Hgb Hct MCV MCH MCHC RDW Plt Count MPV Neut % (Auto) Lymph % (Auto) [place] % (Auto) Eos % (Auto) Baso % (Auto) Neut # (Auto) Lymph # (Auto) [place] # (Auto) Eos # (Auto) Baso # (Auto) ESR PT INR APTT D-Dimer, Quantitative Sodium Potassium Chloride Carbon Dioxide Anion Gap BUN Creatinine Est GFR ( Amer) Est GFR (Non-Af Amer) Random Glucose Calcium Total Bilirubin AST ALT Alkaline Phosphatase Total Creatine Kinase CK-MB (Mass) Troponin I C-React Prot High Sens NT-Pro-B Natriuret Pep Total Protein Albumin Globulin Albumin/Globulin Ratio Amylase Lipase TSH 3rd Generation Urine Color Yellow Urine Clarity Clear Urine pH 5.0 Ur Specific [place] 1.016 Urine Protein Negative Urine Glucose (UA) Normal Urine Ketones Negative Urine Blood Trace-intact Urine Nitrate Negative Urine Bilirubin Negative Urine Urobilinogen Normal Ur Leukocyte Esterase Negative Urine WBC (Auto) 3 Urine RBC (Auto) 1 Ur Squamous Epith Cells < 1 Ur Transition Epith Cell < 1 Influenza Typ A,B (EIA) Attending/Attestation - Attestation I have personally seen and examined this patient.: Yes I have fully participated in the care of the patient.: Yes I have reviewed all pertinent clinical information: Yes Notes (Text): Patient seen, examined and case discussed with day-time resident. Patient seen in the Emergency Room with family present at bedside. Patient reports she had chest pain while she was walking to the bathroom this morning. Patient reports she got up to change her ostomy, when she felt chest pain, that radiated to her back. Patient reports point tenderness over her sternum near the xiphoid process. On exam, patient has tenderness in this area. When I lean her forward, she does not have any pain going to her back. Patient reports she used to see a manager banquet quite some time ago but has not seen one recently. On my abdomen exam: positive bowel sounds, ostomy pink gut, abdomen is soft, no suprapubic tenderness, no palpable mass, no guarding, no peritoneal signs and very soft. Patient does have known lumbar pathology; has tightening of lower back muscles with right lower extremity pain on exam. Patient reports strong hypercoaguable history; sees her tool dispatcher and has had genetic testing but cannot remember result. Has had family hx of PE, personal hx of breast and colon cancer, former smoker. D-Dimer is negative. Patient is on therapeutic level of Coumadin for prior hx of subclavian DVT from 2014. Will remember dopplers to rule out active DVT. Given patient's CKD history, will not order CT contrast based study. Will consider V/Q scan. Order for echocardiogram. Patient does not report shortness of breathe, nor is hypoxic. Assessment/Plan 1. Chest pain * Obs/telemetry * Cardiac risk factors- DM, HTN, former smoker * Prior stress test (04/15): normal SPECT myocardial perfusion study. Fixed, anteroseptal and apical defect secondary to breast attenuation. Normal gated wall motion of the left ventricle. * Troponin: negative * THALIA and EKGS ordered * probnp: normal * Echocardiogram ordered * Cardiology: Dr. Cazares on the case-->help appreciated * Will see the patient tomorrow, case discussed with him * D dimer negative and patient is therapuetic on Coumadin; has been on Coumadin since 2014 * EKG shows t wave inversion in Lead 3--->appears present in prior EKGs * Will follow-up EKGS * Order for ASO and rapid flu * Chest xray (11/01/17): no active disease, 5mm apical lung normal. Cardiomediastinal silhouette within normal. Atherosclerotic aortic calcifications * Order for abdominal US complete * Abdominal US (08/16): no acute findings, heterogenous echotexture of hepatic parenchyma could be due to hepatic steaosis versus parenchymal. Adenomayotosis versus small polyp within gallbladder. Limited evaluation of pancreas. * Order HGB A1C, TSH * Order ESR, CRP * will check manual blood pressure in each upper ext. 2. Hx of subclavian dvt (reports on Coumadin since 2014) Hx of breast cancer s/p lumpectom Hx of colon cancer s/p post total colectomy with ostomy * d dimer negative and therapeutic on warfarin * Continue home coumadin dose * Ordered upper and lower extremity venous dopplers to rule out DVT in light of cancer history; hold SCDS until ruled out * Order for V/Q scan 3. Elevated lipase * Patient clinically does not present as pancreatitis. Abdomen exam is benign. There is no tenderness. She is sitting upright in the stretcher in no acute distress * It can be falsely elevated in CKD. Will order for repeat Lipase and Amylase * Order for Abdominal US r/o gallstones * Abdominal US (08/16): no acute findings, heterogenous echotexture of hepatic parenchyma could be due to hepatic steaosis versus parenchymal. Adenomayotosis versus small polyp within gallbladder. Limited evaluation of pancreas. * Will reorder Abdominal US; keep NPO * Will consider GI consult if needed; Patient sees Dr. Rain as outpatient 4. Urinary frequency * has had week long urinary symptoms was prescribed antibiotic by her kidney doctor but unable to fill secondary to interaction with her coumadin * Will check UA and Urine culture * Start prophylactic empiric Rocephin 1 gram IV q daily 5. Chronic Kidney Disease * nephrology consult. recs appreciated. Dr. Freeman * Sees patient as outpatient 6. Known disc lumbar pathology; sciatica * Prior lumbar MRI noted in the EMR; previous mri will be reviewed 7. Diabetes * Accuchecks Q6H * NPO * Gentle IV hydration * held glipizde * Abdominal US ordered * Hypoglycemic protocol 8. GI/DVT ppx * continue warfarin, patient is therapeutic INR * protonix 40mg PO daily * SCDs contraindicated secondary to prior DVT r/o upper and lower extremity DVTs.
[2017-11-01 18:46] LABS: SQUAMOUS EPITHIAL < 1 /hpf (0-5); URINE BILIRUBIN NEGATIVE (NEGATIVE); URINE CLARITY Clear (Clear); URINE COLOR Yellow (YELLOW); URINE GLUCOSE (UA) NORMAL (Normal); URINE NITRATE NEGATIVE (NEGATIVE); URINE PROTEIN NEGATIVE (NEGATIVE); URINE UROBILINOGEN NORMAL mg/dL (0.2-1.0)
[2017-11-01 18:48] LABS: AMYLASE 223 U/L (30-110)
[2017-11-01 18:51] LABS: URINE BLOOD TRACE-INTACT (NEGATIVE); URINE LEUKOCYTE ESTERASE NEGATIVE Leu/uL (Negative)
[2017-11-01 19:02] LABS: B-TYPE NATRIURETIC PEPTIDE 49.9 pg/mL (0-900); CK-MB 1.09 ng/mL (0.0-3.38)
[2017-11-01] MEDS ORDERED: Dextrose 50% SYRINGE Inj (50 ml) IV PRN (22:07)
[2017-11-01] MEDS ORDERED: Glucagon Recombinant 1 mg Inj IM PRN (22:07)
--- NOTE | 2017-11-01 22:21 | CP.PCM.CON ---
Past Patient History - Infectious Disease Hx of Infectious Diseases: None - Tetanus Immunizations Tetanus Immunization: Unknown - Past Medical History & Family History Past Medical History?: Yes - Past Social History Smoking Status: Former Smoker - CARDIAC Hx Cardiac Disorders: Yes Hx Circulatory Problems: Yes (blood clots) Other/Comment: CLOTS LEFT SUB CLAVIAN 2013 - HEENT Other/Comment: Near sighted - RENAL Hx Chronic Kidney Disease: No - ENDOCRINE/METABOLIC Hx Endocrine Disorders: Yes Hx Diabetes Mellitus Type 1: Yes - HEMATOLOGICAL/ONCOLOGICAL Hx Anemia: Yes - INTEGUMENTARY Hx Dermatological Problems: No - MUSCULOSKELETAL/RHEUMATOLOGICAL Hx Musculoskeletal Disorders: Yes Hx Back Pain: Yes Hx Falls: Yes Other/Comment: Left arm weakness, right foot weakness - GASTROINTESTINAL Hx Gastrointestinal Disorders: Yes Hx Bowel Surgery: Yes Hx Colostomy: Yes (2012) Other/Comment: COLON CANCER - GENITOURINARY/GYNECOLOGICAL Hx Genitourinary Disorders: No Hx Urinary Tract Infection: Yes Other/Comment: COLON CANCER - PSYCHIATRIC Hx Substance Use: No - SURGICAL HISTORY Hx Surgeries: Yes Hx Breast Biopsy: Yes (LEFT BREAST LUMPECTOMY) Hx Hysterectomy: Yes (1988) Other/Comment: TOTAL COLECTOMY 1984 - ANESTHESIA Hx Anesthesia: Yes Hx Anesthesia Reactions: Yes (1984, patient does not remember the medication) Hx Malignant Hyperthermia: No Meds Allergies/Adverse Reactions: Allergies Allergy/AdvReac Type Severity Reaction Status Date / Time acetaminophen [From Percocet] Allergy VOMITING Verified 11/01/17 11:39 oxycodone [From Percocet] Allergy VOMITING Verified 11/01/17 11:39 - Medications Medications: Current Medications Dextrose (Dextrose 50% Inj) 0 ml IV STAT PRN; Protocol PRN Reason: Hypoglycemia Protocol Dextrose (Glutose 15) 0 gm PO ONCE PRN; Protocol PRN Reason: Hypoglycemia Protocol Glucagon (Glucagen Diagnostic Kit) 0 mg IM STAT PRN; Protocol PRN Reason: Hypoglycemia Protocol Home Med (Letrozole [Letrozole]) 2.5 mg PO DAILY BERTO Sodium Chloride (Sodium Chloride 0.9%) 1,000 mls @ 75 mls/hr IV .[id number] BERTO Dextrose (Dextrose 5% In Water 1000 Ml) 1,000 mls @ 0 mls/hr IV .Q0M PRN; Protocol; Per Protocol PRN Reason: Hypoglycemia Protocol Pantoprazole Sodium (Protonix Ec Tab) 40 mg PO DAILY BERTO Rosuvastatin Calcium (Crestor) 5 mg PO HS BERTO Last Admin: 11/01/17 21:59 Dose: 5 mg Results - Vital Signs Recent Vital Signs: Last Vital Signs Temp 97.9 F 11/01/17 20:28 Pulse 86 11/01/17 20:28 Resp 18 11/01/17 20:28 BP 134/76 11/01/17 20:28 Pulse Ox 100 11/01/17 20:28 - Labs Result Diagrams: 11/01/17 12:03 11/01/17 12:03 Labs: Laboratory Results - last 24 hr 11/01/17 11/01/17 11/01/17 12:03 12:03 12:40 WBC 5.6 RBC 3.49 L Hgb 10.8 L Hct 32.5 L MCV 93.1 MCH 30.9 MCHC 33.2 RDW 12.5 Plt Count 252 MPV 8.9 Neut % (Auto) 68.0 Lymph % (Auto) 21.2 [place] % (Auto) 9.3 Eos % (Auto) 1.0 Baso % (Auto) 0.5 Neut # (Auto) 3.8 Lymph # (Auto) 1.2 [place] # (Auto) 0.5 Eos # (Auto) 0.1 Baso # (Auto) 0.0 ESR PT 25.4 H INR 2.2 APTT 42 H D-Dimer, Quantitative Sodium 139 Potassium 5.0 Chloride 103 Carbon Dioxide 24 Anion Gap 17 BUN 31 H Creatinine 1.4 H Est GFR ( Amer) 45 Est GFR (Non-Af Amer) 37 POC Glucose (mg/dL) Random Glucose 196 H Calcium 10.0 Total Bilirubin 0.4 AST 32 ALT 13 Alkaline Phosphatase 83 Total Creatine Kinase CK-MB (Mass) Troponin I < 0.0120 C-React Prot High Sens NT-Pro-B Natriuret Pep 44.8 Total Protein 8.3 Albumin 4.3 Globulin 4.0 H Albumin/Globulin Ratio 1.1 Amylase Lipase TSH 3rd Generation Urine Color Urine Clarity Urine pH Ur Specific [place] Urine Protein Urine Glucose (UA) Urine Ketones Urine Blood Urine Nitrate Urine Bilirubin Urine Urobilinogen Ur Leukocyte Esterase Urine WBC (Auto) Urine RBC (Auto) Ur Squamous Epith Cells Ur Transition Epith Cell Influenza Typ A,B (EIA) 11/01/17 11/01/17 11/01/17 12:40 14:13 16:16 WBC RBC Hgb Hct MCV MCH MCHC RDW Plt Count MPV Neut % (Auto) Lymph % (Auto) [place] % (Auto) Eos % (Auto) Baso % (Auto) Neut # (Auto) Lymph # (Auto) [place] # (Auto) Eos # (Auto) Baso # (Auto) ESR PT INR APTT D-Dimer, Quantitative < 200 Sodium Potassium Chloride Carbon Dioxide Anion Gap BUN Creatinine Est GFR ( Amer) Est GFR (Non-Af Amer) POC Glucose (mg/dL) Random Glucose Calcium Total Bilirubin AST ALT Alkaline Phosphatase Total Creatine Kinase CK-MB (Mass) Troponin I C-React Prot High Sens NT-Pro-B Natriuret Pep Total Protein Albumin Globulin Albumin/Globulin Ratio Amylase Lipase 401 H TSH 3rd Generation Urine Color Urine Clarity Urine pH Ur Specific [place] Urine Protein Urine Glucose (UA) Urine Ketones Urine Blood Urine Nitrate Urine Bilirubin Urine Urobilinogen Ur Leukocyte Esterase Urine WBC (Auto) Urine RBC (Auto) Ur Squamous Epith Cells Ur Transition Epith Cell Influenza Typ A,B (EIA) Negative for flu a/b 11/01/17 11/01/17 11/01/17 18:23 18:23 18:23 WBC RBC Hgb Hct MCV MCH MCHC RDW Plt Count MPV Neut % (Auto) Lymph % (Auto) [place] % (Auto) Eos % (Auto) Baso % (Auto) Neut # (Auto) Lymph # (Auto) [place] # (Auto) Eos # (Auto) Baso # (Auto) ESR 25 H PT INR APTT D-Dimer, Quantitative Sodium Potassium Chloride Carbon Dioxide Anion Gap BUN Creatinine Est GFR ( Amer) Est GFR (Non-Af Amer) POC Glucose (mg/dL) Random Glucose Calcium Total Bilirubin AST ALT Alkaline Phosphatase Total Creatine Kinase 93 CK-MB (Mass) 1.09 Troponin I < 0.0120 C-React Prot High Sens 0.40 L NT-Pro-B Natriuret Pep 49.9 Total Protein Albumin Globulin Albumin/Globulin Ratio Amylase 223 H Lipase TSH 3rd Generation 0.55 Urine Color Urine Clarity Urine pH Ur Specific [place] Urine Protein Urine Glucose (UA) Urine Ketones Urine Blood Urine Nitrate Urine Bilirubin Urine Urobilinogen Ur Leukocyte Esterase Urine WBC (Auto) Urine RBC (Auto) Ur Squamous Epith Cells Ur Transition Epith Cell Influenza Typ A,B (EIA) 11/01/17 11/01/17 18:23 21:14 WBC RBC Hgb Hct MCV MCH MCHC RDW Plt Count MPV Neut % (Auto) Lymph % (Auto) [place] % (Auto) Eos % (Auto) Baso % (Auto) Neut # (Auto) Lymph # (Auto) [place] # (Auto) Eos # (Auto) Baso # (Auto) ESR PT INR APTT D-Dimer, Quantitative Sodium Potassium Chloride Carbon Dioxide Anion Gap BUN Creatinine Est GFR ( Amer) Est GFR (Non-Af Amer) POC Glucose (mg/dL) 98 Random Glucose Calcium Total Bilirubin AST ALT Alkaline Phosphatase Total Creatine Kinase CK-MB (Mass) Troponin I C-React Prot High Sens NT-Pro-B Natriuret Pep Total Protein Albumin Globulin Albumin/Globulin Ratio Amylase Lipase TSH 3rd Generation Urine Color Yellow Urine Clarity Clear Urine pH 5.0 Ur Specific [place] 1.016 Urine Protein Negative Urine Glucose (UA) Normal Urine Ketones Negative Urine Blood Trace-intact Urine Nitrate Negative Urine Bilirubin Negative Urine Urobilinogen Normal Ur Leukocyte Esterase Negative Urine WBC (Auto) 3 Urine RBC (Auto) 1 Ur Squamous Epith Cells < 1 Ur Transition Epith Cell < 1 Influenza Typ A,B (EIA)
[2017-11-01] MEDS: Sodium Chloride 0.9% 1,000 ML IV SCH (22:27)
[2017-11-02 00:56] LABS: CK-MB 1.17 ng/mL (0.0-3.38)
[2017-11-02 09:02] LABS: INR 2.2; PROTHROMBIN TIME 25.7 SECONDS (9.7-12.2)
--- NOTE | 2017-11-02 09:44 | US ---
HISTORY: elevated lipase, smoking hx COMPARISON: None. TECHNIQUE: Sonographic evaluation of the abdomen. FINDINGS: LIVER: Measures 16.5 cm. Normal echogenicity of the liver parenchyma. No mass. No intrahepatic bile duct dilatation. GALLBLADDER: Small 2 mm polyp. No gallstones. COMMON BILE DUCT: Measures 4 mm. No stones. No dilatation. PANCREAS: Limited evaluation. Unremarkable as visualized. No mass. No ductal dilatation. RIGHT KIDNEY: Measures 9.2 x 4.7 x 5.1cm. Normal echogenicity. No calculus, mass, or hydronephrosis. LEFT KIDNEY: Measures 9.5 x 5.1 x 4.5cm. Normal echogenicity. No calculus, mass, or hydronephrosis. SPLEEN: Normal in size and contour. No mass. AORTA: No aneurysmal dilatation. IVC: Unremarkable. OTHER FINDINGS: None. IMPRESSION: Unremarkable abdominal sonogram. Limited evaluation of the pancreas.
[2017-11-02] MEDS: Pantoprazole 40 mg EC Tab PO SCH (09:48)
[2017-11-02] MEDS ORDERED: LETROZOLE 2.5 MG PO SCH (10:00)
[2017-11-02] MEDS: Sodium Chloride 0.9% 1,000 ML IV SCH ×2 (11:46→23:55)
[2017-11-02 13:33] LABS: ALBUMIN 3.7 g/dL (3.5-5.0); CALCIUM 9.6 mg/dl (8.6-10.4); MAGNESIUM 1.5 mg/dL (1.6-2.3)
[2017-11-02 14:16] LABS: BASO % 0.5 % (0.0-2.0); EOS # 0.1 K/uL (0.0-0.7); EOS % 1.4 % (0.0-4.0); HEMOGLOBIN 10.6 g/dL (11.0-16.0); LYMPH # 1.6 K/uL (1.0-4.3); LYMPH % 28.9 % (20.0-40.0); MEAN CELL VOLUME 93.5 fL (81.0-99.0); MEAN CORPUSCULAR HEMOGLOBIN 30.9 pg (27.0-31.0); MEAN CORPUSCULAR HGB CONC 33.1 g/dL (33.0-37.0); MEAN PLATELET VOLUME 9.5 fL (7.2-11.7); MONO # 0.6 K/uL (0.0-0.8); MONO % 10.9 % (0.0-10.0); NEUT # 3.2 K/uL (1.8-7.0); NEUT % 58.3 % (50.0-75.0); NRBC % 0.1 % (0.0-2.0); RBC 3.43 Mil/uL (3.80-5.20); RED CELL DISTRIBUTION WIDTH 12.5 % (11.5-14.5); WHITE BLOOD COUNT 5.5 K/uL (4.8-10.8)
--- NOTE | 2017-11-02 15:40 | CP.PCM.PN ---
<Natanael Kendall - Last Filed: 11/02/17 15:48> Subjective - Date & Time of Evaluation Date of Evaluation: 11/02/17 Time of Evaluation: 15:35 - Subjective Subjective: Progress note. Pt seen and examined at bedside. No acute distress. Pt is still complaining of chest pain to back. However, it is not very reproducible today. No fevers, chills, vomiting, diarrhea. No SOB. Objective - Vital Signs/Intake and Output Vital Signs (last 24 hours): Temp Pulse Resp BP Pulse Ox 98.0 F 74 20 137/81 97 11/02/17 09:20 11/02/17 09:20 11/02/17 09:20 11/02/17 09:20 11/02/17 09:20 - Medications Medications: Current Medications Acetaminophen (Tylenol 325mg Tab) 650 mg PO Q6 PRN PRN Reason: Pain, moderate (4-7) Dextrose (Dextrose 50% Inj) 0 ml IV STAT PRN; Protocol PRN Reason: Hypoglycemia Protocol Dextrose (Glutose 15) 0 gm PO ONCE PRN; Protocol PRN Reason: Hypoglycemia Protocol Glucagon (Glucagen Diagnostic Kit) 0 mg IM STAT PRN; Protocol PRN Reason: Hypoglycemia Protocol Home Med (Letrozole [Letrozole]) 2.5 mg PO DAILY [facility] Sodium Chloride (Sodium Chloride 0.9%) 1,000 mls @ 75 mls/hr IV .[id number] [facility] Last Admin: 11/02/17 11:46 Dose: 75 mls/hr Dextrose (Dextrose 5% In Water 1000 Ml) 1,000 mls @ 0 mls/hr IV .Q0M PRN; Protocol; Per Protocol PRN Reason: Hypoglycemia Protocol Ceftriaxone Sodium 1 gm/ (Sodium Chloride) 100 mls @ 100 mls/hr IVPB Q24H [facility] Last Admin: 11/02/17 11:40 Dose: 100 mls/hr Pantoprazole Sodium (Protonix Ec Tab) 40 mg PO DAILY [facility] Last Admin: 11/02/17 09:48 Dose: 40 mg Rosuvastatin Calcium (Crestor) 5 mg PO HS [facility] Last Admin: 11/01/17 21:59 Dose: 5 mg Warfarin Sodium (Coumadin) 5 mg PO 1800 BERTO Stop: 11/02/17 18:01 - Labs Labs: 11/02/17 14:08 11/02/17 08:52 PT 25.7 SECONDS (9.7-12.2) H 11/02/17 08:52 INR 2.2 11/02/17 08:52 APTT 42 SECONDS (21-34) H 11/01/17 12:40 - Constitutional Appears: Non-toxic, No Acute Distress - Head Exam Head Exam: ATRAUMATIC, NORMAL INSPECTION, NORMOCEPHALIC - Eye Exam Eye Exam: EOMI - ENT Exam ENT Exam: Mucous Membranes Moist - Neck Exam Neck Exam: Full ROM, Normal Inspection - Respiratory Exam Respiratory Exam: NORMAL BREATHING PATTERN. absent: Respiratory Distress - Cardiovascular Exam Cardiovascular Exam: +S1, +S2 - GI/Abdominal Exam GI & Abdominal Exam: Soft, Normal Bowel Sounds. absent: Tenderness - Extremities Exam Extremities Exam: Full ROM, Normal Inspection - Neurological Exam Neurological Exam: Alert, Awake, CN II-XII Intact, Oriented x3 - Psychiatric Exam Psychiatric exam: Normal Affect, Normal Mood - Skin Skin Exam: Dry, Intact, Normal Color, Warm Assessment and Plan - Assessment and Plan (Free Text) Assessment: This is a 67 yo female with 1. Chest pain -risk factors- DM, HTN, former smoker. -trops negative x 3 -d dimer neg -echo pending -cardiology. Dr. Cazares. recs appreciated. -EKG shows t wave inversion- will check for prior ekgs -will follow up report of prior stress test. -ASO pending. -rapid flu negative -cxr shows new right apical 5 mm pulm nodule -bnp normal -HGB A1C is 7.4 -CRP negative 2. hx of subclavian dvt/hx of breast cancer/hx of colon cancer -s/p post total colectomy -d dimer negative -therapeutic on warfarin, will recheck PT/INR tomorrow -continue warfarin 9 mg PO alternating with 5 mg PO -upper and lower extremity venous dopplers pending 3. elevated lipase -repeat lipase and amylase both abnormally elevated but trending down -lipid panel in am -can be due to ckd -abdominal ultrasound unremarkable. 4. urinary frequency -urinalysis negative -urine culture pending -secondary to DM? 5. CKD -nephrology consult. recs appreciated. Dr. Freeman. -pt does have elevation in CR and lowered GFR 6. lumbar pathology -previous mri will be reviewed -shows from 2017 degenerative disc disease extensive, congenital short pedicles , bilateral foramen stenosis. 7. DM -continue home glipizide -hypoglycemia protocol -ISS 8. Pulmonary nodule -CXR shows new right apical 5 mm pulmonary nodule -multiple pulmonary nodules as demonstrated by previous imaging -continue to monitor 9. GI/DVT ppx -continue warfarin: 5 mg PO today ; will alternated with 9 mg PO -protonix daily dw Dr. Dasilva. <Uzma Dasilva V - Last Filed: 11/02/17 20:15> Objective - Vital Signs/Intake and Output Vital Signs (last 24 hours): Temp Pulse Resp BP Pulse Ox 98.1 F 85 20 131/74 99 11/02/17 16:00 11/02/17 16:00 11/02/17 16:00 11/02/17 16:00 11/02/17 16:00 - Medications Medications: Current Medications Acetaminophen (Tylenol 325mg Tab) 650 mg PO Q6 PRN PRN Reason: Pain, moderate (4-7) Dextrose (Dextrose 50% Inj) 0 ml IV STAT PRN; Protocol PRN Reason: Hypoglycemia Protocol Dextrose (Glutose 15) 0 gm PO ONCE PRN; Protocol PRN Reason: Hypoglycemia Protocol Glucagon (Glucagen Diagnostic Kit) 0 mg IM STAT PRN; Protocol PRN Reason: Hypoglycemia Protocol Home Med (Letrozole [Letrozole]) 2.5 mg PO DAILY [facility] Sodium Chloride (Sodium Chloride 0.9%) 1,000 mls @ 75 mls/hr IV .[id number] [facility] Last Admin: 11/02/17 11:46 Dose: 75 mls/hr Dextrose (Dextrose 5% In Water 1000 Ml) 1,000 mls @ 0 mls/hr IV .Q0M PRN; Protocol; Per Protocol PRN Reason: Hypoglycemia Protocol Ceftriaxone Sodium 1 gm/ (Sodium Chloride) 100 mls @ 100 mls/hr IVPB Q24H [facility] Last Admin: 11/02/17 11:40 Dose: 100 mls/hr Pantoprazole Sodium (Protonix Ec Tab) 40 mg PO DAILY [facility] Last Admin: 11/02/17 09:48 Dose: 40 mg Rosuvastatin Calcium (Crestor) 5 mg PO HS [facility] Last Admin: 11/01/17 21:59 Dose: 5 mg - Labs Labs: 11/02/17 14:08 11/02/17 08:52 PT 25.7 SECONDS (9.7-12.2) H 11/02/17 08:52 INR 2.2 11/02/17 08:52 APTT 42 SECONDS (21-34) H 11/01/17 12:40 Attending/Attestation - Attestation I have personally seen and examined this patient.: Yes I have fully participated in the care of the patient.: Yes I have reviewed all pertinent clinical information, including history, physical exam and plan: Yes Notes (Text): Patient seen, examined and case discussed with medical instrument technician. Patient seen this morning. Patient took her Coumadin 9mg PO last night. INR is therapuetic. Patient ordered for Coumadin 5mg PO tonight. Patient reports she feels better. Patient reports she feels hydrated. Patient has point tenderness at the point above the xiphoid process, however, when I lean her forward she does not have pain that radiates on exam. Patient reports she only has the chest pain which she moves. THALIA X3 negative. Patient started on gentle IV hydration last night. Patient denies abdominal pain , denies nausea, and denies vomitting. Abdominal exam is benign. Held her metformin, glipizide, and Lantus on admission. Abdominal US completed: no gallstones, no aneurysmal since of aorta, unremarkable abdominal sonogram. Limited evaluation of the pancreas. Discussed case with cardiology, recommends myocardial stress test and NPO for tonight. Discussed case with nephrology, aware of stress test, and to wait until after test before start NSAIDs and muscle relaxant. Patient's INR therapeutic, ordered for Coumadin 5mg PO tonight; patient alternates between Coumadin 5mg/9mg daily. THALIA X3: negative, T wave inversion on in Lead 3 tried to compare to available EKGs Assessment/Plan 1. Chest pain * Obs/telemetry * Cardiology: Dr Cazares on the case-->help appreciated * Cardiac risk factors- DM, HTN, former smoker * Prior stress test (04/15): normal SPECT myocardial perfusion study. Fixed, anteroseptal and apical defect secondary to breast attenuation. Normal gated wall motion of the left ventricle. * THALIA X3: negative * probnp: normal * Echocardiogram ordered * Pending * Cardiology: Dr. Cazares on the case-->help appreciated * Stress test in AM, and NPO after midnight * D dimer negative and patient is therapuetic on Coumadin; has been on Coumadin since 2014 * Chronic left subclavian DVT and known hx of breast/colon cancer * Order for ASO and rapid flu * Chest xray (11/01/17): no active disease, 5mm apical lung normal. Cardiomediastinal silhouette within normal. Atherosclerotic aortic calcifications * Order for abdominal US complete * Abdominal US (08/16): no acute findings, heterogenous echotexture of hepatic parenchyma could be due to hepatic steaosis versus parenchymal. Adenomayotosis versus small polyp within gallbladder. Limited evaluation of pancreas. * Order HGB A1C: pending, TSH: 0.55 * ESR: 25 CRP: 0.40 2. Hx of Left upper subclavian dvt (reports on Coumadin since 2014) Hx of breast cancer s/p lumpectomy Hx of colon cancer s/p post total colectomy with ostomy * d dimer negative and therapeutic on warfarin * Continue home coumadin dose-->to receive Coumadin mg PO tonight * Ordered upper and lower extremity venous dopplers to rule out DVT in light of cancer history; hold SCDS until ruled out * Patient is therapuetic Coumadin 3. Elevated lipase * Patient clinically does not present as pancreatitis. Abdomen exam is benign. There is no tenderness. She is sitting upright in the stretcher in no acute distress. Lipase came down with gentle IV hydrations * It can be falsely elevated in CKD. Will order for repeat Lipase and Amylase which are downtrending * Abdominal US (08/16): no acute findings, heterogenous echotexture of hepatic parenchyma could be due to hepatic steaosis versus parenchymal. Adenomayotosis versus small polyp within gallbladder. Limited evaluation of pancreas. * Abdominal US (11/02/17); unremarkable; polyp * Will consider GI consult if needed; Patient sees Dr. Rain as outpatient 4. Urinary frequency * has had week long urinary symptoms was prescribed antibiotic by her kidney doctor but unable to fill secondary to interaction with her coumadin * Will check UA and Urine culture pending * Start prophylactic empiric Rocephin 1 gram IV q daily 5. Chronic Kidney Disease * nephrology consult. recs appreciated. Dr. Freeman * Sees patient as outpatient * Improving; hold sodium bicarbonate tabs 6. Known disc lumbar pathology; sciatica * Prior lumbar MRI noted in the EMR; previous mri will be reviewed * hold nsaids/muscle relaxant until after stress test is completed * physical and occupational therapy eval 7. Diabetes * Accuchecks Q6H * Heart healthy diet, mod carb diet * Gentle IV hydration * held glipizde, metformin, and lantus on admission * Novolog subq 6 hours (low dose * Abdominal US ordered * Hypoglycemic protocol 8. GI/DVT ppx * continue warfarin, patient is therapeutic INR * protonix 40mg PO daily * SCDs contraindicated secondary to prior DVT r/o upper and lower extremity DVTs. * PT/OT eval * Left chronic subclavian DVT+ Disposition: Patient is scheduled for myocardial stress test tomorrow in the AM. NPO after midnight. Patient is off diabetic medications. Monitor accuchecks. Held Aspirin/muscle relaxant per nephrology
[2017-11-02] MEDS ORDERED: Magnesium Sulfate 1 gm in D5W 1 GM/100 ML BAG IVPB SCH (15:45)
[2017-11-02] MEDS: Magnesium Sulfate 1 gm in D5W 1 GM/100 ML BAG IVPB SCH ×2 (16:54→18:52)
--- NOTE | 2017-11-02 20:54 | CP.PCM.CON ---
History of Present Illness - History of Present Illness History of Present Illness: Patient scheduled for stress test in am Past Patient History - Infectious Disease Hx of Infectious Diseases: None - Tetanus Immunizations Tetanus Immunization: Unknown - Past Medical History & Family History Past Medical History?: Yes - Past Social History Smoking Status: Former Smoker - CARDIAC Hx Cardiac Disorders: Yes Hx Circulatory Problems: Yes (blood clots) Other/Comment: CLOTS LEFT SUB CLAVIAN 2014 - HEENT Other/Comment: Near sighted - RENAL Hx Chronic Kidney Disease: No - ENDOCRINE/METABOLIC Hx Endocrine Disorders: Yes Hx Diabetes Mellitus Type 1: Yes - HEMATOLOGICAL/ONCOLOGICAL Hx Anemia: Yes - INTEGUMENTARY Hx Dermatological Problems: No - MUSCULOSKELETAL/RHEUMATOLOGICAL Hx Musculoskeletal Disorders: Yes Hx Back Pain: Yes Hx Falls: Yes Other/Comment: Left arm weakness, right foot weakness - GASTROINTESTINAL Hx Gastrointestinal Disorders: Yes Hx Bowel Surgery: Yes Hx Colostomy: Yes (2012) Other/Comment: COLON CANCER - GENITOURINARY/GYNECOLOGICAL Hx Genitourinary Disorders: No Hx Urinary Tract Infection: Yes Other/Comment: COLON CANCER - PSYCHIATRIC Hx Substance Use: No - SURGICAL HISTORY Hx Surgeries: Yes Hx Breast Biopsy: Yes (LEFT BREAST LUMPECTOMY) Hx Hysterectomy: Yes (1988) Other/Comment: TOTAL COLECTOMY 1984 - ANESTHESIA Hx Anesthesia: Yes Hx Anesthesia Reactions: Yes (1984, patient does not remember the medication) Hx Malignant Hyperthermia: No Meds Allergies/Adverse Reactions: Allergies Allergy/AdvReac Type Severity Reaction Status Date / Time acetaminophen [From Percocet] Allergy VOMITING Verified 11/01/17 11:39 oxycodone [From Percocet] Allergy VOMITING Verified 11/01/17 11:39 - Medications Medications: Current Medications Acetaminophen (Tylenol 325mg Tab) 650 mg PO Q6 PRN PRN Reason: Pain, moderate (4-7) Dextrose (Dextrose 50% Inj) 0 ml IV STAT PRN; Protocol PRN Reason: Hypoglycemia Protocol Dextrose (Glutose 15) 0 gm PO ONCE PRN; Protocol PRN Reason: Hypoglycemia Protocol Glucagon (Glucagen Diagnostic Kit) 0 mg IM STAT PRN; Protocol PRN Reason: Hypoglycemia Protocol Home Med (Letrozole [Letrozole]) 2.5 mg PO DAILY [facility] Sodium Chloride (Sodium Chloride 0.9%) 1,000 mls @ 75 mls/hr IV .[id number] [facility] Last Admin: 11/02/17 11:46 Dose: 75 mls/hr Dextrose (Dextrose 5% In Water 1000 Ml) 1,000 mls @ 0 mls/hr IV .Q0M PRN; Protocol; Per Protocol PRN Reason: Hypoglycemia Protocol Ceftriaxone Sodium 1 gm/ (Sodium Chloride) 100 mls @ 100 mls/hr IVPB Q24H [facility] Last Admin: 11/02/17 11:40 Dose: 100 mls/hr Insulin Aspart (Novolog) 0 unit SC Q6H BERTO PRN Reason: Protocol Pantoprazole Sodium (Protonix Ec Tab) 40 mg PO DAILY [facility] Last Admin: 11/02/17 09:48 Dose: 40 mg Rosuvastatin Calcium (Crestor) 5 mg PO HS [facility] Last Admin: 11/01/17 21:59 Dose: 5 mg Results - Vital Signs Recent Vital Signs: Last Vital Signs Temp 98.1 F 11/02/17 16:00 Pulse 85 11/02/17 16:00 Resp 20 11/02/17 16:00 BP 131/74 11/02/17 16:00 Pulse Ox 99 11/02/17 16:00 - Labs Result Diagrams: 11/02/17 14:08 11/02/17 08:52 Labs: Laboratory Results - last 24 hr 11/01/17 11/01/17 11/02/17 18:23 21:14 00:01 WBC RBC Hgb Hct MCV MCH MCHC RDW Plt Count MPV Neut % (Auto) Lymph % (Auto) Ness % (Auto) Eos % (Auto) Baso % (Auto) Neut # (Auto) Lymph # (Auto) Ness # (Auto) Eos # (Auto) Baso # (Auto) PT INR Sodium Potassium Chloride Carbon Dioxide Anion Gap BUN Creatinine Est GFR ( Amer) Est GFR (Non-Af Amer) POC Glucose (mg/dL) 98 160 H Random Glucose Hemoglobin A1c 7.4 H Calcium Phosphorus Magnesium Total Bilirubin AST ALT Alkaline Phosphatase Total Creatine Kinase CK-MB (Mass) Troponin I Total Protein Albumin Globulin Albumin/Globulin Ratio Amylase Lipase 11/02/17 11/02/17 11/02/17 00:21 06:40 08:52 WBC RBC Hgb Hct MCV MCH MCHC RDW Plt Count MPV Neut % (Auto) Lymph % (Auto) Ness % (Auto) Eos % (Auto) Baso % (Auto) Neut # (Auto) Lymph # (Auto) Ness # (Auto) Eos # (Auto) Baso # (Auto) PT 25.7 H INR 2.2 Sodium Potassium Chloride Carbon Dioxide Anion Gap BUN Creatinine Est GFR ( Amer) Est GFR (Non-Af Amer) POC Glucose (mg/dL) 155 H Random Glucose Hemoglobin A1c Calcium Phosphorus Magnesium Total Bilirubin AST ALT Alkaline Phosphatase Total Creatine Kinase 89 CK-MB (Mass) 1.17 Troponin I < 0.0120 Total Protein Albumin Globulin Albumin/Globulin Ratio Amylase Lipase 11/02/17 11/02/17 11/02/17 08:52 12:17 14:08 WBC 5.5 RBC 3.43 L Hgb 10.6 L Hct 32.1 L MCV 93.5 MCH 30.9 MCHC 33.1 RDW 12.5 Plt Count 202 MPV 9.5 Neut % (Auto) 58.3 Lymph % (Auto) 28.9 Ness % (Auto) 10.9 H Eos % (Auto) 1.4 Baso % (Auto) 0.5 Neut # (Auto) 3.2 Lymph # (Auto) 1.6 Ness # (Auto) 0.6 Eos # (Auto) 0.1 Baso # (Auto) 0.0 PT INR Sodium 139 Potassium 4.7 Chloride 105 Carbon Dioxide 23 Anion Gap 15 BUN 26 H Creatinine 1.5 H Est GFR ( Amer) 42 Est GFR (Non-Af Amer) 34 POC Glucose (mg/dL) 161 H Random Glucose 166 H Hemoglobin A1c Calcium 9.6 Phosphorus 3.5 Magnesium 1.5 L Total Bilirubin 0.3 AST 29 ALT 18 Alkaline Phosphatase 72 Total Creatine Kinase CK-MB (Mass) Troponin I Total Protein 7.3 Albumin 3.7 Globulin 3.6 Albumin/Globulin Ratio 1.0 Amylase 198 H Lipase 370 H 11/02/17 17:14 WBC RBC Hgb Hct MCV MCH MCHC RDW Plt Count MPV Neut % (Auto) Lymph % (Auto) Ness % (Auto) Eos % (Auto) Baso % (Auto) Neut # (Auto) Lymph # (Auto) Ness # (Auto) Eos # (Auto) Baso # (Auto) PT INR Sodium Potassium Chloride Carbon Dioxide Anion Gap BUN Creatinine Est GFR ( Amer) Est GFR (Non-Af Amer) POC Glucose (mg/dL) 180 H Random Glucose Hemoglobin A1c Calcium Phosphorus Magnesium Total Bilirubin AST ALT Alkaline Phosphatase Total Creatine Kinase CK-MB (Mass) Troponin I Total Protein Albumin Globulin Albumin/Globulin Ratio Amylase Lipase
[2017-11-02] MEDS: (Novolog) Insulin Aspart, Recombinant 100 u/ml 10 ml vial SC SCH (22:15)
[2017-11-03] MEDS: (Novolog) Insulin Aspart, Recombinant 100 u/ml 10 ml vial SC SCH ×5 (02:34→22:34)
--- NOTE | 2017-11-03 02:50 | CON ---
DATE: NEPHROLOGY CONSULTATION HISTORY OF PRESENT ILLNESS: A 67-year-old female with a past medical history of diabetes since 30 years, status post subclavian vein DVT, on Coumadin; breast cancer, status post lumpectomy; status post new breast metastasis, surgical removal (05/2017), colon CA, status post ileostomy and CKD stage 3, presented to ED yesterday with chest pain; Nephrology is being consulted for CKD care. The patient reports that her chest pain started approximately two to three days prior to presentation; associated with new onset back pain as well as chest pain described as pressure like in bilateral chest; changes intermittent and worsened by movement; reports intermittent palpitations as well; the patient also reports having had rash under bilateral breasts and extending to sternal area which started about two days prior to current symptoms; rash was nonpruritic and has subsequently resolved. The patient otherwise reports appetite has been well, eating fine. Denies any cough or upper respiratory symptoms. Denies any difficulty breathing. No leg swelling. PAST MEDICAL HISTORY: As above. FAMILY HISTORY: Relevant for TX and PE. REVIEW OF SYSTEMS: CONSTITUTIONAL: Appetite is well. HEENT: Denies any difficulty breathing, has scar tissue on left lower neck after recent breast metastasis excision. RESPIRATORY: Denies any cough. Denies any difficulty breathing. CARDIOVASCULAR: As per HPI. GI: No nausea, no vomiting, ileostomy bag fills up about four times per day and alternates between formed stool, somewhat liquidy stool, relatively unchanged. : Reports recent dysuria; no increased urination. MUSCULOSKELETAL: New onset of back pain, otherwise, denies any other aches or pains. NEURO: Denies any numbness of feet. SKIN: As per HPI. No ulcers of feet. PHYSICAL EXAMINATION: GENERAL: No distress, lying comfortably in bed, conversing coherently in full sentences. VITAL SIGNS: This morning, blood pressure 137/81, heart rate 74, respirations 20, temperature 98.0, and O2 sat 97% on room air. HEENT: Moist mucous membranes, anicteric, firm area over left lower neck. RESPIRATORY: Lungs clear to auscultation bilaterally. No rales, no rhonchi, no wheezes. CARDIOVASCULAR: Heart sounds S1, S2 normal. No murmurs, no gallops, no rubs, regular rate and rhythm. GI: Abdomen soft, nondistended. : No bladder distention. SKIN: Warm, no cyanosis. No obvious rash under breasts or on chest. No ulcers of feet. NEURO: Mild numbness of right foot. Distal pulses, 2+ bilateral dorsalis pedis pulses palpable. EXTREMITIES: No leg edema. PSYCHIATRIC: Normal mood, normal affect. LABORATORY DATA: This morning: CBC: WBC 5.5, hemoglobin 10.6, hematocrit 32.1, and platelets 202. Chemistry panel: Sodium 139, potassium 4.7, chloride 105, bicarb 23, BUN 26, creatinine 1.5, glucose 166, calcium 9.6, phosphorus 3.5, magnesium 1.5, albumin 3.7, amylase 198, and lipase 370. Urine studies from yesterday: Negative protein, negative ketones, normal glucose, negative leukocyte esterase, trace intact blood. Chest x-ray from yesterday directly observed, chest x-ray appears clear. Abdominal ultrasound done earlier today showing relatively preserved renal cortices. ASSESSMENT/PLAN: 1. Chronic kidney disease stage 3 - Non-proteinuric kidney disease, which has been relatively stable since the past 4+ years; however, does have significant fluctuations of serum creatinine that are likely hemodynamically mediated and due to volume depletion from ileostomy losses. EGFR has been fluctuating between mid 30s to high 40s, currently 42 ml/min, which is around her baseline. Patient had been previously advised to keep herself well hydrated and on a higher salt diet to avoid volume depletion; had been placed on sodium bicarbonate tablet as well for metabolic acidosis; bicarb currently is normal. Agree with gentle intravenous fluids with normal saline at 75/mL per hour. 2. Hypomagnesemia, has been a chronic problem. The patient is on Mag-Ox 400 mg b.i.d. and recently started by us on Slow-Mag once daily in addition to that; the patient sometimes gets cramps of legs, which may be due to low magnesium. The patient currently is being given magnesium sulphate 2 gm; should run at no more than 1 gm per hour to avoid renal magnesium wasting. 3. Anemia. Relatively mild, we will check iron studies. 4. Chest Pain - Atypical for cardiac etiology; reproducible chest wall tenderness, possibly constochondritis; after cardiac workup completed, can give trial of NSAIDS for limited duration while ensuring that patient is volume replete; Thank you for this referral, we will be following closely. Jonathan MD Lydia OUMOU
[2017-11-03] MEDS: Sodium Chloride 0.9% 1,000 ML IV SCH ×2 (04:26→14:06)
[2017-11-03] MEDS ORDERED: Aminophylline 25 mg/ml Inj ONE (08:05)
[2017-11-03 08:22] VITALS: RESP 20
[2017-11-03 08:35] LABS: INR 1.9; PROTHROMBIN TIME 22.2 SECONDS (9.7-12.2)
[2017-11-03 08:40] LABS: BASO % 0.3 % (0.0-2.0); EOS # 0.1 K/uL (0.0-0.7); EOS % 1.7 % (0.0-4.0); HEMOGLOBIN 10.5 g/dL (11.0-16.0); LYMPH # 1.2 K/uL (1.0-4.3); LYMPH % 23.3 % (20.0-40.0); MEAN CELL VOLUME 92.2 fL (81.0-99.0); MEAN CORPUSCULAR HEMOGLOBIN 30.7 pg (27.0-31.0); MEAN CORPUSCULAR HGB CONC 33.3 g/dL (33.0-37.0); MONO # 0.5 K/uL (0.0-0.8); MONO % 9.4 % (0.0-10.0); NEUT # 3.3 K/uL (1.8-7.0); NEUT % 65.3 % (50.0-75.0); RBC 3.44 Mil/uL (3.80-5.20); RED CELL DISTRIBUTION WIDTH 12.5 % (11.5-14.5); WHITE BLOOD COUNT 5.1 K/uL (4.8-10.8)
[2017-11-03 08:50] LABS: IRON 80 ug/dL (37-170)
[2017-11-03 08:54] LABS: ALBUMIN 3.9 g/dL (3.5-5.0); CALCIUM 9.7 mg/dl (8.6-10.4); MAGNESIUM 1.9 mg/dL (1.6-2.3)
[2017-11-03 09:01] LABS: % IRON SATURATION 26 (20-55); TOTAL IRON BINDING CAPACITY 305 ug/dL (250-450)
[2017-11-03] MEDS ORDERED: Influenza Vaccine 60 mcg/0.5 mL SYR (4YR UP) IM ONE (10:00)
[2017-11-03] MEDS ORDERED: Pneumococcal 23-Valent Vaccine IM ONE (10:00)
[2017-11-03] MEDS: Pantoprazole 40 mg EC Tab PO SCH (13:56)
--- NOTE | 2017-11-03 15:37 | VASCLAB ---
PROCEDURE: Upper Extremity Venous Duplex Exam HISTORY: Chest pain, shortness of breath, previous subclavian dvt PRIORS: None. TECHNIQUE: Bilateral upper extremity, internal jugular, subclavian, axillary, brachial, ulnar, radial, basilic and upper cephalic veins were evaluated. Flow was assessed with color Doppler, compressibility, assessment of phasic flow and augmentation response. Report prepared by Sudheer Perez, SHELIA, RVT FINDINGS: RIGHT: 1. Internal Jugular: 1.1. Compressibility - Fully compressible: Thrombus - None : Flow - Phasic: Augmentation -Normal: Reflux - None. 2. Subclavian: 2.1. Compressibility - Fully compressible: Thrombus - None : Flow - Phasic: Augmentation -Normal: Reflux - None. 3. Axillary: 3.1. Compressibility - Fully compressible: Thrombus - None : Flow - Phasic: Augmentation -Normal: Reflux - None. 4. Brachial: 4.1. Compressibility - Fully compressible: Thrombus - None: Flow - Phasic: Augmentation -Normal: Reflux - None. 5. Ulnar: 5.1. Compressibility - Fully compressible: Thrombus - None: Flow - Phasic: Augmentation -Normal: Reflux - None. 6. Radial: 6.1. Compressibility - Fully compressible: Thrombus - None: Flow - Phasic: Augmentation - Normal: Reflux - None. 7. Cephalic: 7.1. Compressibility - Fully compressible: Thrombus - None: Flow - Phasic: Augmentation -Normal: Reflux - None. 8. Basilic: 8.1. Compressibility - Fully compressible: Thrombus - None: Flow - Phasic: Augmentation -Normal: Reflux - None. LEFT: 1. Internal Jugular: 1.1. Compressibility - Fully compressible: Thrombus - None : Flow - Phasic: Augmentation -Normal: Reflux - None. 2. Subclavian: 2.1. Compressibility - Partial: Thrombus - Chronic : Flow - Reduced : Augmentation -Reduced: Reflux - None. 3. Axillary: 3.1. Compressibility - Fully compressible: Thrombus - None : Flow - Phasic: Augmentation -Normal: Reflux - None. 4. Brachial: 4.1. Compressibility - Fully compressible: Thrombus - None: Flow - Phasic: Augmentation -Normal: Reflux - None. 5. Ulnar: 5.1. Compressibility - Fully compressible: Thrombus - None: Flow - Phasic: Augmentation -Normal: Reflux - None. 6. Radial: 6.1. Compressibility - Fully compressible: Thrombus - None: Flow - Phasic: Augmentation - Normal: Reflux - None. 7. Cephalic: 7.1. Compressibility - Fully compressible: Thrombus - None: Flow - Phasic: Augmentation -Normal: Reflux - None. 8. Basilic: 8.1. Compressibility - Fully compressible: Thrombus - None: Flow - Phasic: Augmentation -Normal: Reflux - None. OTHER FINDINGS: FIORELLA Farheen notified about the findings. IMPRESSION: Right: No evidence of vein thrombosis of the right upper extremity with excellent venous flow. Normal valve function noted of the right side. 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
--- NOTE | 2017-11-03 15:47 | CP.PCM.PN ---
Subjective - Date & Time of Evaluation Date of Evaluation: 11/03/17 Time of Evaluation: 07:45 - Subjective Subjective: PGY1 Medicine Note for Dr. Lazo Patient seen and examined at bedside this morning. Patient complaining of left sided back pain going the length of her back, wrapping around to the front of her chest. The pain is reproducible and worsened with movement. She denies any difficulty breathing. Patient is currently NPO for stress test later today with Dr. Cazares. Denies palpitations, fevers, chills, abdominal pain, headaches, blurry vision, double vision, numbness or tingling. Objective - Vital Signs/Intake and Output Vital Signs (last 24 hours): Temp Pulse Resp BP Pulse Ox 98.2 F 86 20 130/78 98 11/03/17 08:20 11/03/17 13:40 11/03/17 08:20 11/03/17 08:20 11/03/17 08:20 Intake and Output: 11/03/17 11/03/17 06:59 18:59 Intake Total 1050 Balance 1050 - Medications Medications: Current Medications Acetaminophen (Tylenol 325mg Tab) 650 mg PO Q6 PRN PRN Reason: Pain, moderate (4-7) Bismuth Subsalicylate (Pepto Bismol) 262 mg PO BID [facility] Cyclobenzaprine HCl (Flexeril) 5 mg PO TID [facility] Dextrose (Dextrose 50% Inj) 0 ml IV STAT PRN; Protocol PRN Reason: Hypoglycemia Protocol Dextrose (Glutose 15) 0 gm PO ONCE PRN; Protocol PRN Reason: Hypoglycemia Protocol Glucagon (Glucagen Diagnostic Kit) 0 mg IM STAT PRN; Protocol PRN Reason: Hypoglycemia Protocol Home Med (Letrozole [Letrozole]) 2.5 mg PO DAILY [facility] Sodium Chloride (Sodium Chloride 0.9%) 1,000 mls @ 75 mls/hr IV .[id number] [facility] Last Admin: 11/03/17 14:06 Dose: Not Given Dextrose (Dextrose 5% In Water 1000 Ml) 1,000 mls @ 0 mls/hr IV .Q0M PRN; Protocol; Per Protocol PRN Reason: Hypoglycemia Protocol Ibuprofen (Motrin Tab) 600 mg PO Q12 [facility] Last Admin: 11/03/17 14:51 Dose: Not Given Insulin Aspart (Novolog) 0 unit SC ACHS [facility] PRN Reason: Protocol Pantoprazole Sodium (Protonix Ec Tab) 40 mg PO DAILY [facility] Last Admin: 11/03/17 13:56 Dose: 40 mg Rosuvastatin Calcium (Crestor) 5 mg PO HS [facility] Last Admin: 11/02/17 22:14 Dose: 5 mg - Labs Labs: 11/03/17 08:24 11/03/17 08:24 PT 22.2 SECONDS (9.7-12.2) H 11/03/17 08:24 INR 1.9 11/03/17 08:24 APTT 42 SECONDS (21-34) H 11/01/17 12:40 - Constitutional Appears: Non-toxic, No Acute Distress - Head Exam Head Exam: NORMOCEPHALIC - Eye Exam Eye Exam: EOMI - Respiratory Exam Respiratory Exam: Clear to Ausculation Bilateral, Rales, NORMAL BREATHING PATTERN. absent: Accessory Muscle Use, Rhonchi, Wheezes, Respiratory Distress - Cardiovascular Exam Cardiovascular Exam: REGULAR RHYTHM, +S1, +S2 - GI/Abdominal Exam GI & Abdominal Exam: Soft, Normal Bowel Sounds. absent: Distended, Firm, Rigid , Tenderness - Extremities Exam Extremities Exam: absent: Calf Tenderness, Pedal Edema - Back Exam Back Exam: muscle spasm (left sided), tenderness (left sided). absent: CVA tenderness (L), CVA tenderness (R), rash noted, vertebral tenderness - Neurological Exam Neurological Exam: Alert, Awake, Oriented x3 - Psychiatric Exam Psychiatric exam: Normal Affect, Normal Mood - Skin Skin Exam: Dry, Warm Assessment and Plan - Assessment and Plan (Free Text) Plan: Chest pain - risk factors- DM, HTN, former smoker. - trops negative x 3 - d dimer neg - echo pending - cardiology. Dr. Cazares. recs appreciated. - EKG shows t wave inversion- will check for prior ekgs - Stress Test 11/03 - f/u report - ASO pending. - rapid flu negative - cxr shows new right apical 5 mm pulm nodule - bnp normal - HGB A1C is 7.4 - CRP negative hx of subclavian dvt/hx of breast cancer/hx of colon cancer - s/p post total colectomy - d dimer negative - therapeutic on warfarin, will recheck PT/INR tomorrow - continue warfarin 9 mg PO alternating with 5 mg PO - upper and lower extremity venous dopplers pending Elevated Lipase - repeat lipase and amylase both abnormally elevated but trending down - lipid panel in am - can be due to ckd - abdominal ultrasound unremarkable. urinary frequency - urinalysis negative - urine culture pending CKD - nephrology consult. recs appreciated. Dr. Freeman. - pt does have elevation in CR and lowered GFR lumbar pathology - previous mri will be reviewed - shows from 2017 degenerative disc disease extensive, congenital short pedicles , bilateral foramen stenosis. DM - continue home glipizide - hypoglycemia protocol - ISS Pulmonary nodule - CXR shows new right apical 5 mm pulmonary nodule - multiple pulmonary nodules as demonstrated by previous imaging - continue to monitor GI/DVT ppx - continue warfarin: 5 mg PO today ; will alternated with 9 mg PO - protonix daily Case discussed with Dr. Clifton Santoyo Popeye PGY1
--- NOTE | 2017-11-03 15:59 | CP.PCM.PN ---
Subjective - Date & Time of Evaluation Date of Evaluation: 11/03/17 Time of Evaluation: 15:00 - Subjective Subjective: PGY3 on nephrology Dr. Freeman service: Pt seen and examined at bedside. Pt reports improvement with her chest pain, though sharp pain worse with deep breathing and body movements. S/P stress test earlier today. Denied fever, chills, n/v, diarrhea, constipation. Objective - Vital Signs/Intake and Output Vital Signs (last 24 hours): Temp Pulse Resp BP Pulse Ox 98.2 F 86 20 130/78 98 11/03/17 08:20 11/03/17 13:40 11/03/17 08:20 11/03/17 08:20 11/03/17 08:20 Intake and Output: 11/03/17 11/03/17 06:59 18:59 Intake Total 1050 Balance 1050 - Medications Medications: Current Medications Acetaminophen (Tylenol 325mg Tab) 650 mg PO Q6 PRN PRN Reason: Pain, moderate (4-7) Bismuth Subsalicylate (Pepto Bismol) 262 mg PO BID [facility] Cyclobenzaprine HCl (Flexeril) 5 mg PO TID [facility] Dextrose (Dextrose 50% Inj) 0 ml IV STAT PRN; Protocol PRN Reason: Hypoglycemia Protocol Dextrose (Glutose 15) 0 gm PO ONCE PRN; Protocol PRN Reason: Hypoglycemia Protocol Glucagon (Glucagen Diagnostic Kit) 0 mg IM STAT PRN; Protocol PRN Reason: Hypoglycemia Protocol Home Med (Letrozole [Letrozole]) 2.5 mg PO DAILY [facility] Sodium Chloride (Sodium Chloride 0.9%) 1,000 mls @ 75 mls/hr IV .[id number] [facility] Last Admin: 11/03/17 14:06 Dose: Not Given Dextrose (Dextrose 5% In Water 1000 Ml) 1,000 mls @ 0 mls/hr IV .Q0M PRN; Protocol; Per Protocol PRN Reason: Hypoglycemia Protocol Ibuprofen (Motrin Tab) 600 mg PO Q12 [facility] Last Admin: 11/03/17 14:51 Dose: Not Given Insulin Aspart (Novolog) 0 unit SC ACHS [facility] PRN Reason: Protocol Pantoprazole Sodium (Protonix Ec Tab) 40 mg PO DAILY [facility] Last Admin: 11/03/17 13:56 Dose: 40 mg Rosuvastatin Calcium (Crestor) 5 mg PO HS [facility] Last Admin: 11/02/17 22:14 Dose: 5 mg - Labs Labs: 11/03/17 08:24 11/03/17 08:24 PT 22.2 SECONDS (9.7-12.2) H 11/03/17 08:24 INR 1.9 11/03/17 08:24 APTT 42 SECONDS (21-34) H 11/01/17 12:40 - Constitutional Appears: Non-toxic, No Acute Distress - Head Exam Head Exam: NORMOCEPHALIC - Eye Exam Eye Exam: Normal appearance Pupil Exam: NORMAL ACCOMODATION - Respiratory Exam Respiratory Exam: Chest Wall Tenderness, Clear to Ausculation Bilateral, NORMAL BREATHING PATTERN. absent: Wheezes - Cardiovascular Exam Cardiovascular Exam: REGULAR RHYTHM, +S1, +S2 - GI/Abdominal Exam GI & Abdominal Exam: Soft, Normal Bowel Sounds. absent: Tenderness - Neurological Exam Neurological Exam: Alert, Awake, Oriented x3 - Psychiatric Exam Psychiatric exam: Normal Mood - Skin Skin Exam: Intact Assessment and Plan - Assessment and Plan (Free Text) Assessment: CKD Stage 3. Cr 1.4, GFR 45. No acute changes for past few years. Likely secondary to volume depletion from ileostomy losses. No protein in urine. Continue NS 75 ml/hr. Chest pain Likely secondary to costochondritis. F/U nuclear stress test. Chronic left subclavian DVT Bilateral arm doppler redemonstrated left subclavian DVT. Continue Coumadin. DM Management as per primary team. Management as per Dr. Freeman.
--- NOTE | 2017-11-03 16:21 | VASCLAB ---
PROCEDURE: Lower Extremity Venous Duplex Exam. HISTORY: Chest pain, shortness of breath, previous h/o dvt PRIORS: None. TECHNIQUE: Bilateral common femoral, femoral, popliteal and posterior tibial, peroneal and great saphenous veins were evaluated. Flow was assessed with color Doppler, compressibility, assessment of phasic flow and augmentation response. Report prepared by Sudheer Perez, SHELIA, RVT FINDINGS: RIGHT: 1. Common Femoral Vein: 1.1. Compressibility - Fully compressible: Thrombus - None : Flow - Phasic: Augmentation -Normal: Reflux - None. 2. Femoral Vein: 2.1. Compressibility - Fully compressible: Thrombus - None : Flow - Phasic: Augmentation -Normal: Reflux - None. 3. Popliteal Vein: 3.1. Compressibility - Fully compressible: Thrombus - None : Flow - Phasic: Augmentation -Normal: Reflux - None. 4. Posterior Tibial Vein: 4.1. Compressibility - Fully compressible: Thrombus - None: Flow - Phasic: Augmentation -Normal: Reflux - None. 5. Peroneal Vein: 5.1. Compressibility - Fully compressible: Thrombus - None: Flow - Phasic: Augmentation -Normal: Reflux - None. 6. Great Saphenous Vein: 6.1. Compressibility - Fully compressible: Thrombus - None: Flow - Phasic: Augmentation - Normal: Reflux - None. LEFT: 1. Common Femoral Vein: 1.1. Compressibility - Fully compressible: Thrombus - None: Flow - Phasic: Augmentation -Normal: Reflux - None. 2. Femoral Vein: 2.1. Compressibility - Fully compressible: Thrombus - None: Flow - Phasic: Augmentation -Normal: Reflux - None. 3. Popliteal Vein: 3.1. Compressibility - Fully compressible: Thrombus - None : Flow - Phasic: Augmentation -Normal: Reflux - None. 4. Posterior Tibial Vein: 4.1. Compressibility - Fully compressible: Thrombus - None: Flow - Phasic: Augmentation -Normal: Reflux - None. 5. Peroneal Vein: 5.1. Compressibility - Fully compressible: Thrombus - None: Flow - Phasic: Augmentation -Normal: Reflux - None. 6. Great Saphenous Vein: 6.1. Compressibility - Fully compressible: Thrombus - None: Flow - Phasic: Augmentation - Normal: Reflux - None. OTHER FINDINGS: Right: None significant. Left: None significant. IMPRESSION: Right: No evidence of deep or superficial vein thrombosis of the right lower extremity. Normal valve function noted of the right side. Left: No evidence of deep or superficial vein thrombosis of the left lower extremity. Normal valve function noted of the left side.
[2017-11-03] MEDS: Bismuth Subsalicylate 262 mg Chew Tab PO SCH (18:11)
--- NOTE | 2017-11-03 20:05 | CARD ---
APPROVED REPORT Protocol: LEXISCAN Test Type: LEXISCAN STRESS Test Indications: CP Target HR: 151 bpm Resting ECG: NSR W/ POOR RWAVE PROGRESSION FROM V1-V3 Resting Heart Rate: 77 bpm Resting Blood Pressure: 138/80mmHg submaximum (85%): 128 bpm TEST SUMMARY [id number]. INFUSIONDOSE 100:[id number]/80.6. [id number]. PROCEDURE Pharmacologic stress testing was performed using 0.4mg per 5ml of regadenoson given intravenously over 7-10 seconds. Reversal agent aminophyline 100 mg, given intravenously for Headache. POST EXERCISE Reason for Termination: Protocol Completed Target HR: No Max HR: 88 bpm 80% of Maximum Predicted HR: 151 bpm Exercise duration: 00:30 min:sec, 0 Stage Exercise capacity: 1.0METs Max Blood Pressure: 138/80mmHg Blood Pressure response to exercise: normal resting BP - appropriate response Heart Rate response to exercise: appropriate Chest Pain: No, none Angina index: 0 Arrhythmia: No, none ST Change: No, none FROM BASELINE Deviation: 0 mm INTERPRETATION Stress EKG Conclusion: NEGATIVE LEXISCAN STRESS TEST NORMAL BP RESPONSE TO LEXISCAN NUCLEAR STUDIES TO BE READ SEPARATELY EXAM: Myocardial Perfusion REST/STRESS Imaging Protocol The imaging protocol used to acquire images was Rest Tc-99m/stress Tc-99m 1 day Rest Spect myocardial perfusion imaging was performed in supine position 45 minutes following the injection of 13.0 mCi of Tc-99 Myoview. Gated Stress Spect was performed 45 minutes after intravenous 32.5 mCi Tc-99 Myoview injection. The images were gated to evaluate regional wall motion and calculate ventricular ejection fraction.Images were reconstructed using backfilter projection method in short horizontal and verticle long axis. Spect slices were generated. IMPRESSION Normal Myocardial Perfusion exercise stress study Left Ventricle LV Size/Shape: The left ventricle is normal size. LV Function:Left ventricle systolic function is normal. The Ejection Fraction is >70%. Regional Wall Motion:There is normal left ventricular wall motion. Metabolism/Perfusion Defects: There is no scan evidence of reversible ischemia noted. Conclusion 1. There is no scan evidence of reversible ischemia noted. 2. Left ventricle systolic function is normal. 3. The Ejection Fraction is >70%.
[2017-11-03] MEDS ORDERED: LETROZOLE 2.5MG PO SCH (23:00)
--- NOTE | 2017-11-03 23:35 | CP.PCM.PN ---
Subjective - Date & Time of Evaluation Date of Evaluation: 11/03/17 Time of Evaluation: 19:45 - Subjective Subjective: Patient seen and evaluated c/o Chest pain positional Stress test: Normal Normal EF Non cardiac chest pain Objective - Vital Signs/Intake and Output Vital Signs (last 24 hours): Temp Pulse Resp BP Pulse Ox 98 F 85 20 134/71 100 11/03/17 15:00 11/03/17 15:00 11/03/17 15:00 11/03/17 15:00 11/03/17 15:00 - Medications Medications: Current Medications Acetaminophen (Tylenol 325mg Tab) 650 mg PO Q6 PRN PRN Reason: Pain, moderate (4-7) Bismuth Subsalicylate (Pepto Bismol) 262 mg PO BID [facility] Last Admin: 11/03/17 18:11 Dose: 262 mg Cyclobenzaprine HCl (Flexeril) 5 mg PO TID [facility] Last Admin: 11/03/17 18:10 Dose: 5 mg Dextrose (Dextrose 50% Inj) 0 ml IV STAT PRN; Protocol PRN Reason: Hypoglycemia Protocol Dextrose (Glutose 15) 0 gm PO ONCE PRN; Protocol PRN Reason: Hypoglycemia Protocol Glucagon (Glucagen Diagnostic Kit) 0 mg IM STAT PRN; Protocol PRN Reason: Hypoglycemia Protocol Home Med (Patient's Own Medication) 1 tab PO Q24H [facility] Last Admin: 11/03/17 22:33 Dose: 1 tab Sodium Chloride (Sodium Chloride 0.9%) 1,000 mls @ 75 mls/hr IV .[id number] [facility] Last Admin: 11/03/17 14:06 Dose: Not Given Dextrose (Dextrose 5% In Water 1000 Ml) 1,000 mls @ 0 mls/hr IV .Q0M PRN; Protocol; Per Protocol PRN Reason: Hypoglycemia Protocol Ibuprofen (Motrin Tab) 600 mg PO Q12 [facility] Last Admin: 11/03/17 21:54 Dose: 600 mg Insulin Aspart (Novolog) 0 unit SC ACHS [facility] PRN Reason: Protocol Last Admin: 11/03/17 22:34 Dose: Not Given Pantoprazole Sodium (Protonix Ec Tab) 40 mg PO DAILY [facility] Last Admin: 11/03/17 13:56 Dose: 40 mg Rosuvastatin Calcium (Crestor) 5 mg PO HS [facility] Last Admin: 11/03/17 21:55 Dose: 5 mg - Labs Labs: 11/03/17 08:24 11/03/17 08:24 PT 22.2 SECONDS (9.7-12.2) H 11/03/17 08:24 INR 1.9 11/03/17 08:24 APTT 42 SECONDS (21-34) H 11/01/17 12:40
[2017-11-04] MEDS: Sodium Chloride 0.9% 1,000 ML IV SCH ×2 (02:39→04:44)
[2017-11-04] MEDS: (Novolog) Insulin Aspart, Recombinant 100 u/ml 10 ml vial SC SCH ×2 (08:30→12:40)
[2017-11-04] MEDS ORDERED: LETROZOLE 2.5MG PO SCH (10:00)
[2017-11-04] MEDS ORDERED: Pneumococcal 23-Valent Vaccine IM ONE (10:00)
[2017-11-04] MEDS: Pantoprazole 40 mg EC Tab PO SCH (10:34)
[2017-11-04] MEDS: Bismuth Subsalicylate 262 mg Chew Tab PO SCH (10:35)
--- NOTE | 2017-11-04 11:02 | CARD ---
APPROVED REPORT EXAM: Two-dimensional and M-mode echocardiogram with Doppler and color Doppler. Other Information Quality : GoodRhythm : INDICATION Chest Pain HISTORY OF BREAST CA RISK FACTORS Diabetes 2D DIMENSIONS IVSd0.8 (0.7-1.1cm)LVDd4.5 (3.9-5.9cm) PWd0.8 (0.7-1.1cm)LVDs2.6 (2.5-4.0cm) FS (%) 41.2 %LVEF (%)72.3 (>50%) M-Mode DIMENSIONS Left Atrium (MM)3.62 (2.5-4.0cm)Aortic Root3.07 (2.2-3.7cm) Aortic Cusp Exc.1.84 (1.5-2.0cm) Mitral Valve MV E Pwmegsfe00.5cm/sMV A Mdrrgjwv08.3cm/sE/A ratio0.7 TDI E/Lateral E'0.0E/Medial E'0.0 Tricuspid Valve TR Peak [id number]/sTR Peak Gr.[id number] LEFT VENTRICLE The left ventricle is normal size. There is normal left ventricular wall thickness. Left ventricle systolic function is normal. The Ejection Fraction is >70%. There is normal LV segmental wall motion. The left ventricular diastolic function is normal. RIGHT VENTRICLE The right ventricle is normal size. There is normal right ventricular wall thickness. The right ventricular systolic function is normal. ATRIA The left atrium size is normal. The right atrium size is normal. The interatrial septum is intact with no evidence for an atrial septal defect. AORTIC VALVE The aortic valve is normal in structure. No aortic regurgitation is present. There is no aortic valvular stenosis. There is no aortic valvular vegetation. MITRAL VALVE The mitral valve is normal in structure. There is no evidence of mitral valve prolapse. There is no mitral valve stenosis. Mitral regurgitation is trace to mild. TRICUSPID VALVE The tricuspid valve is normal in structure. There is no tricuspid valve regurgitation noted. There is no tricuspid valve prolapse or vegetation. There is no tricuspid valve stenosis. PULMONIC VALVE The pulmonic valve is not well visualized. There is no pulmonic valvular regurgitation. GREAT VESSELS The aortic root is normal in size. PERICARDIAL EFFUSION There is no significant pericardial effusion. <Conclusion> Left ventricle systolic function is normal. The Ejection Fraction is >70%. No aortic regurgitation is present. Mitral regurgitation is trace to mild. There is no tricuspid valve regurgitation noted. There is no pulmonic valvular regurgitation.
[2017-11-04 12:53] VITALS: O2SAT 100
--- NOTE | 2017-11-04 14:10 | CP.PCM.DIS ---
Provider - Provider Date of Admission: 11/03/17 15:44 Attending physician: Uzma Dasilva DO Time Spent in preparation of Discharge (in minutes): 30 Hospital Course - Lab Results Lab Results: Micro Results 11/01/17 16:23 Urine,Clean Catch Urine Culture - Final Gram Positive Cocci Gram Negative Tristin Most Recent Lab Values WBC 5.1 K/uL (4.8-10.8) 11/03/17 08:24 RBC 3.44 Mil/uL (3.80-5.20) L 11/03/17 08:24 Hgb 10.5 g/dL (11.0-16.0) L 11/03/17 08:24 Hct 31.7 % (34.0-47.0) L 11/03/17 08:24 MCV 92.2 fL (81.0-99.0) 11/03/17 08:24 MCH 30.7 pg (27.0-31.0) 11/03/17 08:24 MCHC 33.3 g/dL (33.0-37.0) 11/03/17 08:24 RDW 12.5 % (11.5-14.5) 11/03/17 08:24 Plt Count 256 K/uL (130-400) 11/03/17 08:24 MPV 9.0 fL (7.2-11.7) 11/03/17 08:24 Neut % (Auto) 65.3 % (50.0-75.0) 11/03/17 08:24 Lymph % (Auto) 23.3 % (20.0-40.0) 11/03/17 08:24 [place] % (Auto) 9.4 % (0.0-10.0) 11/03/17 08:24 Eos % (Auto) 1.7 % (0.0-4.0) 11/03/17 08:24 Baso % (Auto) 0.3 % (0.0-2.0) 11/03/17 08:24 Neut # (Auto) 3.3 K/uL (1.8-7.0) 11/03/17 08:24 Lymph # (Auto) 1.2 K/uL (1.0-4.3) 11/03/17 08:24 [place] # (Auto) 0.5 K/uL (0.0-0.8) 11/03/17 08:24 Eos # (Auto) 0.1 K/uL (0.0-0.7) 11/03/17 08:24 Baso # (Auto) 0.0 K/uL (0.0-0.2) 11/03/17 08:24 ESR 25 mm/hr (0-20) H 11/01/17 18:23 PT 22.2 SECONDS (9.7-12.2) H 11/03/17 08:24 INR 1.9 11/03/17 08:24 APTT 42 SECONDS (21-34) H 11/01/17 12:40 D-Dimer, Quantitative < 200 ng/mlDDU (0-243) 11/01/17 14:13 Sodium 140 mmol/L (132-148) 11/03/17 08:24 Potassium 4.7 mmol/L (3.6-5.2) 11/03/17 08:24 Chloride 104 mmol/L (98-107) 11/03/17 08:24 Carbon Dioxide 22 mmol/L (22-30) 11/03/17 08:24 Anion Gap 18 (10-20) 11/03/17 08:24 BUN 24 mg/dL (7-17) H 11/03/17 08:24 Creatinine 1.4 mg/dL (0.7-1.2) H 11/03/17 08:24 Est GFR ( Amer) 45 11/03/17 08:24 Est GFR (Non-Af Amer) 37 11/03/17 08:24 POC Glucose (mg/dL) 334 mg/dL (65-110) H 11/04/17 11:35 Random Glucose 197 mg/dL (65-105) H 11/03/17 08:24 Hemoglobin A1c 7.4 % (4.2-6.5) H 11/01/17 18:23 Calcium 9.7 mg/dl (8.6-10.4) 11/03/17 08:24 Phosphorus 3.5 mg/dL (2.5-4.5) 11/03/17 08:24 Magnesium 1.9 mg/dL (1.6-2.3) 11/03/17 08:24 Iron 80 ug/dL (37-170) 11/03/17 08:24 TIBC 305 ug/dL (250-450) 11/03/17 08:24 % Saturation 26 (20-55) 11/03/17 08:24 Ferritin 23.0 ng/mL 11/03/17 08:24 Total Bilirubin 0.3 mg/dL (0.2-1.3) 11/03/17 08:24 AST 26 U/L (14-36) 11/03/17 08:24 ALT 15 U/L (9-52) 11/03/17 08:24 Alkaline Phosphatase 69 U/L (38-126) 11/03/17 08:24 Total Creatine Kinase 89 U/L (30-135) 11/02/17 00:21 CK-MB (Mass) 1.17 ng/mL (0.0-3.38) 11/02/17 00:21 Troponin I < 0.0120 ng/mL (0.00-0.120) 11/02/17 00:21 C-React Prot High Sens 0.40 mg/L (1.00-3.00) L 11/01/17 18:23 NT-Pro-B Natriuret Pep 49.9 pg/mL (0-900) 11/01/17 18:23 Total Protein 7.7 g/dL (6.3-8.3) 11/03/17 08:24 Albumin 3.9 g/dL (3.5-5.0) 11/03/17 08:24 Globulin 3.8 gm/dL (2.2-3.9) 11/03/17 08:24 Albumin/Globulin Ratio 1.0 (1.0-2.1) 11/03/17 08:24 Amylase 198 U/L (30-110) H 11/02/17 08:52 Lipase 370 U/L (23-300) H 11/02/17 08:52 TSH 3rd Generation 0.55 mIU/L (0.46-4.68) 11/01/17 18:23 Urine Color Yellow (YELLOW) 11/01/17 18:23 Urine Clarity Clear (Clear) 11/01/17 18:23 Urine pH 5.0 (5.0-8.0) 11/01/17 18:23 Ur Specific [place] 1.016 (1.003-1.030) 11/01/17 18:23 Urine Protein Negative mg/dL (NEGATIVE) 11/01/17 18:23 Urine Glucose (UA) Normal mg/dL (Normal) 11/01/17 18:23 Urine Ketones Negative mg/dL (NEGATIVE) 11/01/17 18:23 Urine Blood Trace-intact (NEGATIVE) 11/01/17 18:23 Urine Nitrate Negative (NEGATIVE) 11/01/17 18:23 Urine Bilirubin Negative (NEGATIVE) 11/01/17 18:23 Urine Urobilinogen Normal mg/dL (0.2-1.0) 11/01/17 18:23 Ur Leukocyte Esterase Negative Rula/uL (Negative) 11/01/17 18:23 Urine WBC (Auto) 3 /hpf (0-5) 11/01/17 18:23 Urine RBC (Auto) 1 /hpf (0-3) 11/01/17 18:23 Ur Squamous Epith Cells < 1 /hpf (0-5) 11/01/17 18:23 Ur Transition Epith Cell < 1 /hpf (0-3) 11/01/17 18:23 Influenza Typ A,B (EIA) Negative for flu a/b (NEGATIVE) 11/01/17 16:16 - Hospital Course Hospital Course: As per admission documentation This is a 67 year old female with past medical hx of colon cancer, breast cancer , sciatica, clot in subclavian, ckd, presenting with chief complaint of chest pain. pt has been having chest pain for 1-2 days. she reports this has never happened before. she says she saw a skilled laborer a long time ago but cannot recall why. she reports having a normal stress test. she says the pain is located over her sternum and radiates to her back. relaxing makes it better, bending over makes it worse. the pain itself has been getting worse, now 5/10. describes the sensation as "pressure." denies abdominal pain. on warfarin for subclavian dvt. Hospital Course Patient was admitted to telemetry on 11/01/17 for Chest Pain, r/o ACS/PE. Cardiology consulted, Dr. Cazares - chest pain. Nephro consulted, Dr. Freeman - CKD Stage 3. D-dimer negative. Trops negative x3. CXR 11/01 - No active disease. Right apical 5 mm pulmonary nodule. Multiple additional pulmonary nodules demonstrated on CT scan of the chest, abdomen pelvis from April 2017. Abdomen US 11/02 (due to elevated lipase)- Unremarkable abdominal sonogram. Limited evaluation of the pancreas. ECHO 11/03 - Left ventricle systolic function is normal. The Ejection Fraction is >70%. No aortic regurgitation is present. Mitral regurgitation is trace to mild. There is no tricuspid valve regurgitation noted. There is no pulmonic valvular regurgitation Cardiac Stress Test (Chemical) 11/03 - 1. There is no scan evidence of reversible ischemia noted. 2. Left ventricle systolic function is normal. 3. The Ejection Fraction is >70%. Venous Duplex Upper Ext b/l 11/03 Right: No evidence of vein thrombosis of the right upper extremity with excellent venous flow. Normal valve function noted of the right side. 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 Venous Duplex Lower Ext b/l 11/03 Right: No evidence of deep or superficial vein thrombosis of the right lower extremity. Normal valve function noted of the right side. Left: No evidence of deep or superficial vein thrombosis of the left lower extremity. Normal valve function noted of the left side. Patient was started on Flexeril and given ibuprofen/tylenol on 11/03 after stress test reviled no abnormalities. Patient was monitored for another 24 hours. Her symptoms improved with Flexeril and ibuprofen/tylenol. 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 Patient complained of a burning sensation. UA on admission was clean but urine culture showed Gram Positive cocci and Gram Neg rods. Both grew <10,000. Patient started on Macrobid. Patient was discharged home on 11/04 with the following instructions. Discharge Instructions Patient is to be discharge home per Dr. Regan Prince. Patient was seen by Dr. Olu Cazares, Engagement Specialist, while in the hospital for Chest Pain. Cardiac Stress was normal. Patient is able to follow up with Dr. Cazares as needed. Patient is to follow with her primary care physician, Dr. Radha Prince, within one week for a repeat urinary analysis and continuation of care. Patient is to continue to follow up with her oncologist, Dr. Papo Prince, for her hx of breast and colon cancer. Patient is instructed to continue taking her medications, as previously prescribed. She was asked if she needed any refills of medications, patient states that she has all of her medications at this time. Patient has been given three new prescription: - Macrobid Monohydrate 100mg capsules. Patient is to take one capsule by mouth twice a day for 5 days. - Flexeril 5mg tables. Patient is to take one tablet by mouth three times a day as needed for muscle tightness. - Ibuprofen 600mg tables. Patient is to take one tablet Thank you allowing us to take part in your care. Hope you continue to feel better. If the patient experiences any new or concerning symptoms, please go to the nearest emergency facility. This is just a brief summary of the patient's hospital course. For full detail, please see EMR. Discharge Exam - Head Exam Head Exam: ATRAUMATIC, NORMOCEPHALIC - Eye Exam Eye Exam: EOMI, Normal appearance. absent: Scleral icterus - ENT Exam ENT Exam: Mucous Membranes Moist - Respiratory Exam Respiratory Exam: Clear to PA & Lateral, NORMAL BREATHING PATTERN, UNREMARKABLE. absent: Accessory Muscle Use, Rales, Rhonchi, Wheezes, Respiratory Distress - Cardiovascular Exam Cardiovascular Exam: REGULAR RHYTHM, +S1, +S2 - GI/Abdominal Exam GI & Abdominal Exam: Normal Bowel Sounds, Soft, Unremarkable. absent: Distended , Firm, Guarding, Rigid, Tenderness - Extremities Exam Extremities exam: normal inspection, pedal pulses present - Back Exam Back exam: absent: CVA tenderness (L), CVA tenderness (R) - Neurological Exam Neurological exam: Alert, Oriented x3 - Psychiatric Exam Psychiatric exam: Normal Affect, Normal Mood - Skin Skin Exam: Dry, Warm Discharge Plan - Discharge Medications Prescriptions: Cyclobenzaprine [Flexeril] 5 mg PO TID #30 tab Ibuprofen [Motrin Tab] 600 mg PO Q12 #30 tab Nitrofurantoin Macrocrystals [Macrobid] 100 mg PO BID #10 cap - Follow Up Plan Condition: FAIR Disposition: HOME/ ROUTINE Instructions: Pancreatitis (DC), Kidney Disease Diet (For People Not on Dialysis), Chest Pain (DC), Cyclobenzaprine, Nitrofurantoin Additional Instructions: Patient is to be discharge home per Dr. Regan Prince. Patient was seen by Dr. Olu Cazares, Engagement Specialist, while in the hospital for Chest Pain. Cardiac Stress was normal. Patient is able to follow up with Dr. Cazares as needed. Patient is to follow with her primary care physician, Dr. Radha Prince, within one week for a repeat urinary analysis and continuation of care. Patient is to continue to follow up with her oncologist, Dr. Papo Prince, for her hx of breast and colon cancer. Patient is instructed to continue taking her medications, as previously prescribed. She was asked if she needed any refills of medications, patient states that she has all of her medications at this time. Patient has been given three new prescription: - Macrobid Monohydrate 100mg capsules. Patient is to take one capsule by mouth twice a day for 5 days. - Flexeril 5mg tables. Patient is to take one tablet by mouth three times a day as needed for muscle tightness. - Ibuprofen 600mg tables. Patient is to take one tablet Thank you allowing us to take part in your care. Hope you continue to feel better. If the patient experiences any new or concerning symptoms, please go to the nearest emergency facility. Referrals: Olu Cazares MD [Staff Provider] -
[2017-11-04 14:35] VITALS: PULSE 82; TEMP 98.2
[2017-11-04 14:50] VITALS: BP 152/81
--- NOTE | 2017-11-05 07:31 | CP.PCM.PN ---
Subjective - Date & Time of Evaluation Date of Evaluation: 11/04/17 Time of Evaluation: 13:00 - Subjective Subjective: Reports chest pain improved; Objective - Vital Signs/Intake and Output Vital Signs (last 24 hours): Temp Pulse Resp BP Pulse Ox 98.2 F 82 20 152/81 H 100 11/04/17 12:52 11/04/17 12:52 11/04/17 12:52 11/04/17 14:50 11/04/17 12:52 - Labs Labs: 11/03/17 08:24 11/03/17 08:24 PT 22.2 SECONDS (9.7-12.2) H 11/03/17 08:24 INR 1.9 11/03/17 08:24 APTT 42 SECONDS (21-34) H 11/01/17 12:40 - Constitutional Appears: Non-toxic, No Acute Distress - Respiratory Exam Respiratory Exam: Clear to Ausculation Bilateral. absent: Respiratory Distress - Cardiovascular Exam Cardiovascular Exam: RRR, +S1, +S2 Assessment and Plan (1) CKD (chronic kidney disease) stage 3, GFR 30-59 ml/min Assessment & Plan: Renal function stable; needs to avoid volume depletion (tendency for this to happen with increased ostomy losses); advised to keep on high Na diet Status: Acute (2) Volume depletion Status: Chronic (3) Chest pain Assessment & Plan: Non-cardiac chest pain; being given ibuprofen; advised to take as needed only; should avoid continuous use in the setting of CKD and propensity for volume depletion; Status: Acute
== END 2017-11-04 16:24 | disposition home or self-care (01) | DRG 205 ==
LOC: C.ER 11:35 → C.9E 13:59 → C.6T 17:29 → OBSVTOIN 11-03 15:44
PROVIDERS: ADMIT Internal Medicine; ATTEND Hospitalist
DX: M94.0 Chondrocostal junction syndrome [Tietze] (principal); K85.90 Acute pancreatitis without necrosis or infection, unspecified; E10.22 Type 1 diabetes mellitus with diabetic chronic kidney disease; E83.42 Hypomagnesemia; I82.B22 Chronic embolism and thrombosis of left subclavian vein; N18.3 Chronic kidney disease, stage 3 (moderate); I12.9 Hypertensive chronic kidney disease with stage 1 through stage 4 chronic kidney disease, or unspecified chronic kidney disease; D64.9 Anemia, unspecified; E86.9 Volume depletion, unspecified; I34.0 Nonrheumatic mitral (valve) insufficiency; M54.30 Sciatica, unspecified side; M48.061 Spinal stenosis, lumbar region without neurogenic claudication; Z85.038 Personal history of other malignant neoplasm of large intestine; Z85.3 Personal history of malignant neoplasm of breast; Z79.01 Long term (current) use of anticoagulants; Z79.4 Long term (current) use of insulin; Z86.718 Personal history of other venous thrombosis and embolism; Z87.440 Personal history of urinary (tract) infections; Z87.891 Personal history of nicotine dependence; Z90.710 Acquired absence of both cervix and uterus; Z90.49 Acquired absence of other specified parts of digestive tract; Z93.2 Ileostomy status

== ENCOUNTER 2017-12-01 07:42 | Day surgery (SDC) | payer MEDICARE ==
[2017-12-01] MEDS ORDERED: Propofol 10 mg/ml Inj (20 ML) ONE (09:21)
--- NOTE | 2017-12-01 09:29 | CP.SDSHP ---
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[facility]) - Previous Medical/Surgical History Pulmonary: Asthma Endocrine/Metabolic: Diabetes Misc: Other Comments: Subclavian vein thrombosis, arthritis, breast cancer, treated hepatitis C Previous Surgical History: Hysterectomy, lumpectomy, total colectomy - Allergies Allergies: Allergies acetaminophen [From Percocet] Allergy (Verified 11/01/17 11:39) VOMITING oxycodone [From Percocet] Allergy (Verified 11/01/17 11:39) VOMITING - Current Medications Current Medications: See reconciliation sheet - Physical Exam Vital Signs: Vital Signs 12/01/17 08:37 Temperature 97.6 F Pulse Rate 61 Respiratory 18 Rate Blood Pressure 141/62 O2 Sat by Pulse 100 Oximetry Mental Status: Alert & Oriented x3 Neuro: WNL Heart: WNL Lungs: WNL GI: WNL - {Optional Preform as Required} Abdomen: WNL - Impression Impression: Dyspepsia, personal history of Liao syndrome Pt. Evaluated Today:Candidate for Anesthesia & Procedure: Yes - Date & Time Date: 12/01/17 Time: 09:30 Short Stay Discharge - Short Stay Discharge Admitting Diagnosis/Reason for Visit: DIAPHRAGMATIC HERNIA WITHOUT OBSTRUCTION OR GANGRE Disposition: HOME/ ROUTINE
[2017-12-01] MEDS ORDERED: Midazolam 2 MG/2 ML VIAL ONE (09:33)
[2017-12-01 10:23] VITALS: TEMP 97
[2017-12-01 10:39] VITALS: BP 152/68; PULSE 85; RESP 18; O2SAT 98
== END 2017-12-01 11:00 | disposition home or self-care (01) ==
LOC: C.ENDO 07:42
PROVIDERS: ATTEND Internal Medicine Gastroenterology
DX: R10.13 Epigastric pain (principal); K44.9 Diaphragmatic hernia without obstruction or gangrene; E11.9 Type 2 diabetes mellitus without complications; K31.7 Polyp of stomach and duodenum; K29.50 Unspecified chronic gastritis without bleeding; K22.70 Barrett's esophagus without dysplasia; K29.70 Gastritis, unspecified, without bleeding; Z15.09 Genetic susceptibility to other malignant neoplasm
CPT/HCPCS: 43239; 82948; 88305; J2001; J2250; J2704